=== PATIENT | male | born 1980 | race American Indian/Alaskan Native ===

== ENCOUNTER 2017-10-06 10:57 | Emergency (ER) | payer SELFPAY ==
[2017-10-06 11:06] VITALS: BP 121/68
--- NOTE | 2017-10-06 12:55 | Emergency Department Report ---
Chief Complaint: Medical Clearance Stated Complaint: DIZZINESS Time Seen by Provider: 10/06/17 12:41 - HPI History of Present Illness: 37-year-old [place] male comes in for a blood pressure check. Patient reports that she has been out of his blood pressure medicine for 2 weeks but does not know the name of them. He reports that he is followed at [facility] and reports that his appointment on Thursday. He reports his Kory's medication with his mother which has been hydralazine and a water pill. Patient's blood pressure in triage is 121/68. Patient reports he took one of his mother's hydralazine this morning. She denies any chest pain shortness of breathing. Patient has appointment on Thursday. - ROS Review of Systems: Denies any chest pain Shortness of breathing denies headache - Exam Vital Signs: Vital Signs 10/06/17 11:00 Temperature 98.5 F Pulse Rate 72 Respiratory 16 Rate Blood Pressure 121/68 O2 Sat by Pulse 98 Oximetry Physical Exam: Patient's alert and oriented cardiovascular S1-S2 regular rate and rhythm Respiratory clear to auscultation bilateral Lower leg extremities trace edema MSE screening note: Focused history and physical exam performed. Due to findings the following was ordered: This provider was able to call [facility]. They're able to see him on 517 at 7 PM. Discussed the patient to keep that appointment patient verbalized understanding ED Disposition for MSE Condition: Stable Referrals: PRIMARY CARE, [Primary Care Provider] - 3-5 Days Forms: Work/School Release Form(ED)
== END 2017-10-06 12:58 | disposition left against medical advice (07) ==
LOC: ED 10:57
DX: R42 Dizziness and giddiness (principal)
CPT/HCPCS: 99282

== ENCOUNTER 2018-01-12 11:18 | Inpatient (IN) | payer OTHER ==
[2018-01-12] MEDS ORDERED: NACL 0.9% 1000 ML 1,000 ML IV ONE (14:21)
[2018-01-12] MEDS ORDERED: MORPHINE IV ONE (14:22)
[2018-01-12] MEDS ORDERED: ZOFRAN IV ONE (14:22)
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
[2018-01-12 15:09] LABS: Basophils % (Auto) 0.7 % (0.0-1.8); Eosinophils # (Auto) 0.1 K/mm3 (0.0-0.4); Eosinophils % (Auto) 2.1 % (0.0-4.3); Hematocrit 31.5 % (35.5-45.6); Hemoglobin 10.4 gm/dl (11.8-15.2); Lymphocytes # (Auto) 0.9 K/mm3 (1.2-5.4); Lymphocytes % (Auto) 12.6 % (13.4-35.0); Mean Corpuscular HGB Conc 33 % (32-34); Mean Corpuscular Hemoglobin 30 pg (28-32); Mean Corpuscular Volume 91 fl (84-94); Monocytes # (Auto) 0.7 K/mm3 (0.0-0.8); Monocytes % (Auto) 9.6 % (0.0-7.3); Platelet Count 106 K/mm3 (140-440); Red Blood Count 3.46 M/mm3 (3.65-5.03); Red Cell Distribution Width 14.2 % (13.2-15.2)
[2018-01-12 15:25] LABS: Alanine Aminotransferase 33 units/L (7-56); Albumin 1.5 g/dL (3.9-5)
[2018-01-12 16:18] LABS: BUN/Creatinine Ratio 4; Blood Urea Nitrogen 50 mg/dL (9-20); Calcium 6.4 mg/dL (8.4-10.2); Hemolysis Index 2; Lipase 14 units/L (13-60)
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
[2018-01-12] MEDS ORDERED: TYLENOL PO PRN (18:50)
[2018-01-12] MEDS ORDERED: PROVENTIL IH PRN (18:50)
--- NOTE | 2018-01-12 18:50 | History and Physical Report ---
History of Present Illness Chief complaint: I just feel sick History of present illness: 37 YO Male with Obesity, HTN, Nicotine Dependence, NSAID Use presents to ED for evaluation. Pt states that he has been feeling "sick" for the past 3 weeks. Pt states that he has experienced nausea, multiple episodes of vomiting, as well as chronic pain for which he has been taking Goody powder daily for pain relief. Pt acknowledges leg swelling, undetermined amount of weight gain. Pt denies fever, chills, CP, Palpitations, NVD, Syncope, Trauma, BRBPR, unintentional weight loss, or night sweats. Pt seen and evaluated in ED and found to have evidence of ESRD as well as Acidosis. CT Abdomen/Pelvis revealed an incidental finding of Left Renal Mass. Nephrology consulted in ED, Urology consulted in ED as per ED staff. Past History Past Medical History: hypertension Past Surgical History: No surgical history, Other (reviewed) Social history: single, smoking Family history: hypertension Medications and Allergies Allergies Allergy/AdvReac Type Severity Reaction Status Date / Time No Known Allergies Allergy Unverified 10/06/17 11:06 Review of Systems Constitutional: weight gain, weakness, no weight loss, no fever, no chills, no sweats Ears, nose, mouth and throat: no ear pain, no ear discharge, no tinnitis, no decreased hearing, no nose pain, no nasal congestion Cardiovascular: no chest pain, no orthopnea, no palpitations, no rapid/ irregular heart beat, no edema, no syncope Respiratory: no cough, no cough with sputum, no excessive sputum, no hemoptysis , no shortness of breath Gastrointestinal: nausea, vomiting, no diarrhea, no constipation, no change in bowel habits, no hematemesis Genitourinary Male: no hematuria, no flank pain, no discharge, no urinary frequency, no urinary hesitancy Rectal: no pain, no incontinence, no bleeding Musculoskeletal: no neck pain, no shooting arm pain, no arm numbness/tingling, no low back pain, no shooting leg pain Integumentary: no rash, no pruritis, no redness, no sores, no wounds Neurological: no head injury, no transient paralysis, no paralysis, no weakness , no numbness, no tingling, no seizures Psychiatric: no anxiety, no memory loss, no change in sleep habits, no sleep disturbances, no insomnia, no hypersomnia, no change in appetite, no change in libido Endocrine: no cold intolerance, no heat intolerance, no polyphagia, no excessive thirst, no polydipsia, no polyuria, no nocturia Exam - Constitutional Vitals: Temp Pulse Resp BP Pulse Ox 98.4 F 71 18 148/92 97 01/12/18 18:15 01/12/18 18:15 01/12/18 18:15 01/12/18 18:15 01/12/18 18:15 General appearance: Present: mild distress - EENT Eyes: Present: PERRL ENT: hearing intact, clear oral mucosa - Neck Neck: Present: supple, normal ROM - Respiratory Respiratory effort: normal Respiratory: bilateral: CTA - Cardiovascular Heart Sounds: Present: S1 & S2. Absent: rub, click - Extremities Extremities: pulses symmetrical, No edema Extremity abnormal: edema Peripheral Pulses: within normal limits - Abdominal General gastrointestinal: Present: soft, non-tender, non-distended, normal bowel sounds Male genitourinary: Present: normal - Integumentary Integumentary: Present: clear, warm, dry - Musculoskeletal Musculoskeletal: gait normal, strength equal bilaterally - Psychiatric Psychiatric: appropriate mood/affect, intact judgment & insight - Neurologic Neurologic: CNII-XII intact, moves all extremities Results - Labs CBC & Chem 7: 01/12/18 14:41 01/12/18 14:41 Labs: Abnormal lab results 01/12/18 01/12/18 Range/Units 14:41 14:41 RBC 3.46 L (3.65-5.03) M/mm3 Hgb 10.4 L (11.8-15.2) gm/dl Hct 31.5 L (35.5-45.6) % Plt Count 106 L (140-440) K/mm3 Lymph % (Auto) 12.6 L (13.4-35.0) % [place] % (Auto) 9.6 H (0.0-7.3) % Lymph # 0.9 L (1.2-5.4) K/mm3 Seg Neutrophils % 75.0 H (40.0-70.0) % Carbon Dioxide 17 L (22-30) mmol/L BUN 50 H (9-20) mg/dL Creatinine 13.5 H (0.8-1.5) mg/dL Calcium 6.4 L (8.4-10.2) mg/dL Total Protein 4.3 L (6.3-8.2) g/dL Albumin 1.5 L (3.9-5) g/dL Assessment and Plan - Patient Problems (1) ESRD (end stage renal disease) Current Visit: Yes Status: Acute Plan to address problem: Nephrology consulted in ED, urine ultrasound, rapid HIV, hepatitis panel, complement (2) Acidosis Current Visit: Yes Status: Acute Plan to address problem: IV Bicarbonate, supportive care, repeat BMP (3) Renal mass, left Current Visit: Yes Status: Acute Plan to address problem: Urology consulted in ED. (4) DVT prophylaxis Current Visit: Yes Status: Acute Plan to address problem: SCD to BLE while in bed.
--- NOTE | 2018-01-12 18:55 | XRay Report ---
FINAL REPORT EXAM: XR CHEST ROUTINE 2V HISTORY: EDEMA WITH CONGESTION TECHNIQUE: Frontal and lateral views of the chest Comparison: CT abdomen and pelvis also performed today FINDINGS: There are bilateral pleural effusions as was demonstrated on the CT abdomen and pelvis also performed today. There is prominence of the interstitial markings in both lungs with peribronchial thickening. There are patchy areas of pulmonary consolidation in both lung bases. Atelectasis versus infiltrates. The cardiomediastinal silhouette is normal in appearance. The bony structures are unremarkable. IMPRESSION: 1. Bilateral pleural effusions. 2. Atelectasis versus infiltrates both lung bases. 3. Prominence of the interstitial markings with peribronchial thickening. If further imaging is required, CT chest may be helpful.
[2018-01-12] MEDS ORDERED: SODIUM BICARBONATE 50 MEQ in NACL 0.9% 1000 ML 1,000 ML IV SCH (19:00)
[2018-01-12] MEDS ORDERED: SODIUM BICARBONATE IV ONE (21:15)
[2018-01-12 22:25] LABS: Hepatitis A Antibody IgM Non-Reactive (NonReactive); Hepatitis B Core IgM Non-Reactive (NonReactive); Hepatitis B Surface Antigen Non-Reactive (Negative); Hepatitis C Virus Antibody Non-Reactive (NonReactive)
[2018-01-12] MEDS: SODIUM CHLORIDE FLUSH SYRINGE 10 ML IV SCH (22:58)
[2018-01-13] MEDS: PERCOCET 5/325 PO PRN ×3 (05:52→20:22)
[2018-01-13 08:25] LABS: Creatinine,Urine < 4.2 mg/dL (0.1-20.0)
--- NOTE | 2018-01-13 11:29 | Progress Note ---
Assessment and Plan Assessment and plan: 37 YO Male with Obesity, HTN, Nicotine Dependence, NSAID Use presents to ED for evaluation. Pt states that he has been feeling "sick" for the past 3 weeks. Pt states that he has experienced nausea, multiple episodes of vomiting, as well as chronic pain for which he has been taking Goody powder daily for pain relief. Pt acknowledges leg swelling, undetermined amount of weight gain. Pt denies fever, chills, CP, Palpitations, NVD, Syncope, Trauma, BRBPR, unintentional weight loss, or night sweats. Pt seen and evaluated in ED and found to have evidence of ESRD as well as Acidosis. CT Abdomen/Pelvis revealed an incidental finding of Left Renal Mass. Nephrology consulted in ED, Urology consulted in ED as per ED staff. according to additional information obtained from Mother. Pt has been with diagnosis of HTN for about 1 year and unfortunately non complaint with treatment. He follows at [facility] [place] [facility] when he feels bad and is taken lasix and norvasc for the past year 40mg and 5 mg respectively. He smokes 3 cigarettes per day and has been on goody powder for the last 5 months. He denies knowledge of previous lab results. GALLO with possible underlying CKD COMPLICATED BY NSAID USE PERITONEAL IRRITATION PLEURAL EFFUSION EDEMA SEVERE METABOLIC ACIDOSIS HTN LEFT RENAL MASS ANEMIA OF CHRONIC DISEASE NON COMPLIANCE Plan Continue supportive care Gentle hydration with Bicarb drip Checked labs today still with abnormal renal function and worsening acidosis Nephrology, Urology input noted. Need biopsy once renal work up completed resume BP control Counselling about compliance stressed Check Echocardiogram Obtain records DVT/GI prophy Plan discussed in detail with the patient. History Interval history: Patient seen and examined, reports no knowlegde of renal condition. Denies any chest pain, nausea, vomiting diarrhea Hospitalist Physical - Constitutional Vitals: Temp Pulse Resp BP Pulse Ox 98.6 F 73 20 150/90 100 01/13/18 06:04 01/12/18 23:39 01/13/18 06:04 01/13/18 06:04 01/12/18 23:39 General appearance: Present: no acute distress, well-nourished - EENT Eyes: Present: PERRL, EOM intact ENT: hearing intact - Neck Neck: Present: supple, normal ROM - Respiratory Respiratory effort: normal Respiratory: bilateral: CTA - Cardiovascular Rhythm: regular Heart Sounds: Present: S1 & S2. Absent: systolic murmur - Extremities Extremities: pulses intact Extremity abnormal: edema (+2 bilateral pitting edema) Peripheral Pulses: within normal limits - Abdominal General gastrointestinal: soft, non-tender, non-distended, normal bowel sounds - Integumentary Integumentary: Present: clear, warm - Psychiatric Psychiatric: appropriate mood/affect, memory intact, other (poor insight) - Neurologic Neurologic: CNII-XII intact, moves all extremities - Allied Health Allied health notes reviewed: nursing Results - Labs CBC & Chem 7: 01/12/18 14:41 01/13/18 12:44 Labs: Laboratory Last Values WBC 6.8 K/mm3 (4.5-11.0) 01/12/18 14:41 RBC 3.46 M/mm3 (3.65-5.03) L 01/12/18 14:41 Hgb 10.4 gm/dl (11.8-15.2) L 01/12/18 14:41 Hct 31.5 % (35.5-45.6) L 01/12/18 14:41 MCV 91 fl (84-94) 01/12/18 14:41 MCH 30 pg (28-32) 01/12/18 14:41 MCHC 33 % (32-34) 01/12/18 14:41 RDW 14.2 % (13.2-15.2) 01/12/18 14:41 Plt Count 106 K/mm3 (140-440) L 01/12/18 14:41 Lymph % (Auto) 12.6 % (13.4-35.0) L 01/12/18 14:41 Traverse % (Auto) 9.6 % (0.0-7.3) H 01/12/18 14:41 Eos % (Auto) 2.1 % (0.0-4.3) 01/12/18 14:41 Baso % (Auto) 0.7 % (0.0-1.8) 01/12/18 14:41 Lymph # 0.9 K/mm3 (1.2-5.4) L 01/12/18 14:41 Traverse # 0.7 K/mm3 (0.0-0.8) 01/12/18 14:41 Eos # 0.1 K/mm3 (0.0-0.4) 01/12/18 14:41 Baso # 0.0 K/mm3 (0.0-0.1) 01/12/18 14:41 Seg Neutrophils % 75.0 % (40.0-70.0) H 01/12/18 14:41 Seg Neutrophils # 5.1 K/mm3 (1.8-7.7) 01/12/18 14:41 Sodium 141 mmol/L (137-145) 01/12/18 14:41 Potassium 3.9 mmol/L (3.6-5.0) 01/12/18 14:41 Chloride 107.0 mmol/L (98-107) 01/12/18 14:41 Carbon Dioxide 17 mmol/L (22-30) L 01/12/18 14:41 Anion Gap 21 mmol/L 01/12/18 14:41 BUN 50 mg/dL (9-20) H 01/12/18 14:41 Creatinine 13.5 mg/dL (0.8-1.5) H 01/12/18 14:41 Estimated GFR 5 ml/min 01/12/18 14:41 BUN/Creatinine Ratio 4 % 01/12/18 14:41 Glucose 96 mg/dL (75-100) 01/12/18 14:41 Calcium 6.4 mg/dL (8.4-10.2) L 01/12/18 14:41 Total Bilirubin < 0.20 mg/dL (0.1-1.2) 01/12/18 14:41 AST 33 units/L (5-40) 01/12/18 14:41 ALT 33 units/L (7-56) 01/12/18 14:41 Alkaline Phosphatase 95 units/L (35-129) 01/12/18 14:41 NT-Pro-B Natriuret Pep 1826 pg/mL (0-450) H 01/12/18 18:46 Total Protein 4.3 g/dL (6.3-8.2) L 01/12/18 14:41 Albumin 1.5 g/dL (3.9-5) L 01/12/18 14:41 Albumin/Globulin Ratio 0.5 % 01/12/18 14:41 Lipase 14 units/L (13-60) 01/12/18 14:41 Urine Creatinine < 4.2 mg/dL (0.1-20.0) 01/13/18 06:18 Urine Sodium 10 mmol/L 01/13/18 06:18 Hepatitis A IgM Ab Non-reactive (NonReactive) 01/12/18 21:37 Hep Bs Antigen Non-reactive (Negative) 01/12/18 21:37 Hep B Core IgM Ab Non-reactive (NonReactive) 01/12/18 21:37 Hepatitis C Antibody Non-reactive (NonReactive) 01/12/18 21:37 HIV 1&2 Antibody Rapid Non react (Non React) 01/12/18 21:36 HIV P24 Antigen Non react (Non React) 01/12/18 21:36 - Imaging and Cardiology CT scan - abdomen: image reviewed (left renal mass, pleural effusion, moderate stool)
[2018-01-13] MEDS ORDERED: NORVASC PO SCH (12:00)
[2018-01-13] MEDS ORDERED: NACL 0.9% 1000 ML 1,000 ML IV SCH (12:00)
[2018-01-13] MEDS: SODIUM CHLORIDE FLUSH SYRINGE 10 ML IV SCH ×2 (12:23→22:00)
--- NOTE | 2018-01-13 12:44 | Progress Note ---
Assessment and Plan dictated renal mass needs tx after renal failure addressed Subjective Date of service: 01/13/18 Principal diagnosis: renal mass Objective - Constitutional Vitals: Vital Signs - 12hr 01/13/18 01/13/18 06:04 12:20 Temperature 98.6 F Respiratory 20 Rate Blood Pressure 150/90 142/86 General appearance: Present: no acute distress Extremities: no ischemia - Gastrointestinal General gastrointestinal: Present: soft, non-tender Rectal Exam: other (atrophic ) - Labs CBC & Chem 7: 01/12/18 14:41 01/12/18 14:41 Labs: Abnormal lab results 01/12/18 01/12/18 01/12/18 Range/Units 14:41 14:41 18:46 RBC 3.46 L (3.65-5.03) M/mm3 Hgb 10.4 L (11.8-15.2) gm/dl Hct 31.5 L (35.5-45.6) % Plt Count 106 L (140-440) K/mm3 Lymph % (Auto) 12.6 L (13.4-35.0) % Baker % (Auto) 9.6 H (0.0-7.3) % Lymph # 0.9 L (1.2-5.4) K/mm3 Seg Neutrophils % 75.0 H (40.0-70.0) % Carbon Dioxide 17 L (22-30) mmol/L BUN 50 H (9-20) mg/dL Creatinine 13.5 H (0.8-1.5) mg/dL Calcium 6.4 L (8.4-10.2) mg/dL NT-Pro-B Natriuret Pep 1826 H (0-450) pg/mL Total Protein 4.3 L (6.3-8.2) g/dL Albumin 1.5 L (3.9-5) g/dL
[2018-01-13 13:35] LABS: Calcium 6.1 mg/dL (8.4-10.2)
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
[2018-01-13] MEDS ORDERED: SODIUM BICARBONATE IV ONE ×2 (15:30→16:00)
[2018-01-13] MEDS ORDERED: NACL 0.9% 1000 ML 1,000 ML with SODIUM BICARBONATE 50 MEQ IV SCH (15:30)
[2018-01-13] MEDS ORDERED: CALCIUM GLUCONATE 1,000 MG in NACL 0.9% 100 ML IV ONE (17:00)
[2018-01-13] MEDS ORDERED: SODIUM BICARBONATE 150 MEQ in D5W 1,000 ML IV SCH (17:00)
--- NOTE | 2018-01-13 18:21 | Ultrasound Report ---
FINAL REPORT EXAM: US RENAL BILAT HISTORY: renal failure TECHNIQUE: Grayscale and color-flow imaging of the kidneys and bladder was performed. Comparison: CT abdomen and pelvis dated January 12, 2018 FINDINGS: Right kidney: Measures 10.2 centimeters x 3.9 centimeters x 4.2 centimeters. There is evidence of cortical thinning with cortical thickness measuring 9.5 millimeters. There is increased echogenicity of the renal cortex suggestive of medical renal disease. There is no demonstration of hydronephrosis, renal calculi or renal mass. Left kidney: Visualization of detail of the left kidney is somewhat limited by artifact. The left kidney measures 13.4 centimeters x 5.7 centimeters x 7.5 centimeters. There is mild left hydronephrosis. There is no demonstration of renal calculi. There is increased echogenicity of the left renal cortex suggestive of medical renal disease. There is an approximately 3.9 centimeter x 3 centimeter by 3 centimeter hypoechoic exophytic mass arising from the lower pole corresponding to the mass demonstrated on the recent CT. There appears to be through transmission suggestive that this is a cyst. Urinary bladder: Mildly distended. There appears to be increased thickness of the bladder wall. IMPRESSION: 1. Right renal atrophy. 2. Mild left hydronephrosis 3. Evidence of bilateral medical renal disease. 4. Exophytic hypoechoic mass arising from the lower pole left kidney that appears to be a cyst. Comparison with previous imaging studies would be helpful. 5. Increased thickness of the bladder wall. This may be due to under distention of the bladder.
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
[2018-01-14 05:36] LABS: Basophils % (Auto) 0.6 % (0.0-1.8); Eosinophils # (Auto) 0.2 K/mm3 (0.0-0.4); Eosinophils % (Auto) 3.1 % (0.0-4.3); Hematocrit 26.3 % (35.5-45.6); Hemoglobin 8.8 gm/dl (11.8-15.2); Lymphocytes # (Auto) 1.1 K/mm3 (1.2-5.4); Lymphocytes % (Auto) 17.7 % (13.4-35.0); Mean Corpuscular HGB Conc 34 % (32-34); Mean Corpuscular Hemoglobin 30 pg (28-32); Mean Corpuscular Volume 89 fl (84-94); Monocytes # (Auto) 0.5 K/mm3 (0.0-0.8); Monocytes % (Auto) 8.8 % (0.0-7.3); Red Blood Count 2.97 M/mm3 (3.65-5.03); Red Cell Distribution Width 14.2 % (13.2-15.2)
[2018-01-14 05:38] LABS: Platelet Count 88 K/mm3 (140-440)
[2018-01-14 05:55] LABS: Calcium 6.3 mg/dL (8.4-10.2)
[2018-01-14] MEDS: PERCOCET 5/325 PO PRN ×4 (06:08→23:22)
--- NOTE | 2018-01-14 09:35 | Progress Note ---
Assessment and Plan Acute Renal Failure possibly Prerenal secondary to Volume Depletion secondary to N/V and poor appetite for 3 weeks in the setting of Diuretic use with Lasix possibly on Chronic Kidney Disease secondary to NASID use with Goody's Powder and Hypertension: -no improvement in kidney function, very likely ESRD - secondary GN work up and vasculitis is pending, so far negative for HIV, HCV and HBV - urine studies are pending - reanl US showed mild Left hydronephrosis, pack ordered, urology on board -Avoid Nephrotoxic agents-No NASID's -No diuretics for now or REBECA or ARB due to advanced vale lfailure -Obtain daily weights -Monitor I/O's -Will monitor renal function closely -If no improvement in renal function in the next 24-48 hours will need dialysis initiation Abdominal Pain: Nausea/Vomiting: -On Zofran prn for nausea -On Oxycodone prn for pain -As per primary team Edema: -May need HD if no improvement in renal function Metabolic Acidosis secondary to renal failure: -D5W with 150 meq of Sodium Bicarbonate@ 75 ml/hr Renal Mass, left: -CT scan of Abdomen revealed-Mild Left hydronephrosis without definite evidence of an obstructing stone. Left kidney larger than the right. There is a 3.5 cm exophytic soft tissue mass on lower pole of left kidney. -Urology consulted Anemia: -Obtain iron studies -Monitor H/H -May need Epogen Hypertension: -On Nifedipine now -Monitor and adjust regimen as needed Subjective Date of service: 01/14/18 Principal diagnosis: renal mass Interval history: feels weak but denies acute issues Objective - Vital Signs Vital signs: Vital Signs - 12hr 01/13/18 01/13/18 01/14/18 22:00 22:42 05:52 Temperature 98.4 F 98.4 F Pulse Rate 74 78 Pulse Rate [ 74 Left Radial] Respiratory 74 H 16 18 Rate Blood Pressure 144/75 118/70 O2 Sat by Pulse 99 99 97 Oximetry - General Appearance General appearance: well-developed, well-nourished, appears stated age EENT: ATNC, PERRL, mucous membranes moist Neck: no JVD, no carotid bruit Respiratory: Present: Clear to Ascultation, Decreased Breath Sounds. Absent: Rales, Ronchi Cardiology: regular, S1S2 Gastrointestinal: normoactive bowel sounds, no tenderness, no distended Integumentary: no rash, warm and dry Neurologic: no focal deficit, no asterixis, alert and oriented x3 Musculoskeletal: other (trace pitting edema in BLE) Psychiatric: mood/affect appropriate, cooperative - Lab 01/14/18 04:51 01/14/18 04:51 Most recent lab results Calcium 6.3 mg/dL (8.4-10.2) L 01/14/18 04:51 Phosphorus 8.20 mg/dL (2.5-4.5) H 01/14/18 04:51 Urine Creatinine < 4.2 mg/dL (0.1-20.0) 01/13/18 06:18 Urine Sodium 10 mmol/L 01/13/18 06:18 Urine Total Protein 79 mg/dL (5-11.8) H 01/13/18 Unknown
[2018-01-14] MEDS: PROCARDIA XL PO SCH (12:31)
[2018-01-14] MEDS: SODIUM CHLORIDE FLUSH SYRINGE 10 ML IV SCH ×2 (12:32→21:22)
--- NOTE | 2018-01-14 14:41 | Progress Note ---
Assessment and Plan Assessment and plan: 37 YO Male with Obesity, HTN, Nicotine Dependence, NSAID Use presents to ED for evaluation. Pt states that he has been feeling "sick" for the past 3 weeks. Pt states that he has experienced nausea, multiple episodes of vomiting, as well as chronic pain for which he has been taking Goody powder daily for pain relief. Pt acknowledges leg swelling, undetermined amount of weight gain. Pt denies fever, chills, CP, Palpitations, NVD, Syncope, Trauma, BRBPR, unintentional weight loss, or night sweats. Pt seen and evaluated in ED and found to have evidence of ESRD as well as Acidosis. CT Abdomen/Pelvis revealed an incidental finding of Left Renal Mass. Nephrology consulted in ED, Urology consulted in ED as per ED staff. according to additional information obtained from Mother. Pt has been with diagnosis of HTN for about 1 year and unfortunately non complaint with treatment. He follows at [facility] when he feels bad and is taken lasix and norvasc for the past year 40mg and 5 mg respectively. He smokes 3 cigarettes per day and has been on goody powder for the last 5 months. He denies knowledge of previous lab results. GALLO with possible underlying CKD COMPLICATED BY NSAID USE PERITONEAL IRRITATION PLEURAL EFFUSION EDEMA SEVERE METABOLIC ACIDOSIS Thrombocytopenia Hypokalemia LEFT HYDRONEPHROSIS HTN LEFT RENAL MASS ANEMIA OF CHRONIC DISEASE NON COMPLIANCE Plan Continue supportive care Gentle hydration with Bicarb drip Arora ordered. May need dialysis fi no improvement,. discussed Replace electrolyes Nephrology, Urology input noted. Need biopsy once renal work up completed resume BP control Counselling about compliance stressed Check Echocardiogram Obtain records DVT/GI prophy Plan discussed in detail with the patient. History Interval history: Patient seen and examined, no new compliants, Denies any chest pain, nausea, vomiting diarrhea Hospitalist Physical - Physical exam Narrative exam: General appearance: Present: no acute distress, well-nourished - EENT Eyes: Present: PERRL, EOM intact ENT: hearing intact - Neck Neck: Present: supple, normal ROM - Respiratory Respiratory effort: normal Respiratory: bilateral: CTA - Cardiovascular Rhythm: regular Heart Sounds: Present: S1 & S2. Absent: systolic murmur - Extremities Extremities: pulses intact Extremity abnormal: edema (+2 bilateral pitting edema) Peripheral Pulses: within normal limits - Abdominal General gastrointestinal: soft, non-tender, non-distended, normal bowel sounds - Integumentary Integumentary: Present: clear, warm - Psychiatric Psychiatric: appropriate mood/affect, memory intact, other (poor insight) - Neurologic Neurologic: CNII-XII intact, moves all extremities - Allied Health Allied health notes reviewed: nursing - Constitutional Vitals: Temp Pulse Resp BP Pulse Ox 98.0 F 62 18 138/74 58 L 01/14/18 11:30 01/14/18 11:30 01/14/18 11:30 01/14/18 11:30 01/14/18 11:30 General appearance: Present: no acute distress, well-nourished Results - Labs CBC & Chem 7: 01/14/18 04:51 01/14/18 04:51 Labs: Laboratory Last Values WBC 6.0 K/mm3 (4.5-11.0) 01/14/18 04:51 RBC 2.97 M/mm3 (3.65-5.03) L 01/14/18 04:51 Hgb 8.8 gm/dl (11.8-15.2) L 01/14/18 04:51 Hct 26.3 % (35.5-45.6) L 01/14/18 04:51 MCV 89 fl (84-94) 01/14/18 04:51 MCH 30 pg (28-32) 01/14/18 04:51 MCHC 34 % (32-34) 01/14/18 04:51 RDW 14.2 % (13.2-15.2) 01/14/18 04:51 Plt Count 88 K/mm3 (140-440) L 01/14/18 04:51 Lymph % (Auto) 17.7 % (13.4-35.0) 01/14/18 04:51 [place] % (Auto) 8.8 % (0.0-7.3) H 01/14/18 04:51 Eos % (Auto) 3.1 % (0.0-4.3) 01/14/18 04:51 Baso % (Auto) 0.6 % (0.0-1.8) 01/14/18 04:51 Lymph # 1.1 K/mm3 (1.2-5.4) L 01/14/18 04:51 [place] # 0.5 K/mm3 (0.0-0.8) 01/14/18 04:51 Eos # 0.2 K/mm3 (0.0-0.4) 01/14/18 04:51 Baso # 0.0 K/mm3 (0.0-0.1) 01/14/18 04:51 Seg Neutrophils % 69.8 % (40.0-70.0) 01/14/18 04:51 Seg Neutrophils # 4.2 K/mm3 (1.8-7.7) 01/14/18 04:51 Sodium 137 mmol/L (137-145) 01/14/18 04:51 Potassium 3.3 mmol/L (3.6-5.0) L 01/14/18 04:51 Chloride 106.2 mmol/L (98-107) 01/14/18 04:51 Carbon Dioxide 17 mmol/L (22-30) L 01/14/18 04:51 Anion Gap 17 mmol/L 01/14/18 04:51 BUN 51 mg/dL (9-20) H 01/14/18 04:51 Creatinine 13.0 mg/dL (0.8-1.5) H 01/14/18 04:51 Estimated GFR 5 ml/min 01/14/18 04:51 BUN/Creatinine Ratio 4 % 01/14/18 04:51 Glucose 89 mg/dL (75-100) 01/14/18 04:51 Calcium 6.3 mg/dL (8.4-10.2) L 01/14/18 04:51 Phosphorus 8.20 mg/dL (2.5-4.5) H 01/14/18 04:51 Iron 32 ug/dL (49-181) L 01/14/18 04:51 TIBC 61 mcg/dL (250-450) L 01/14/18 04:51 Ferritin 1231.0 ng/mL (13.0-400.0) H 01/14/18 04:51 Total Bilirubin < 0.20 mg/dL (0.1-1.2) 01/12/18 14:41 AST 33 units/L (5-40) 01/12/18 14:41 ALT 33 units/L (7-56) 01/12/18 14:41 Alkaline Phosphatase 95 units/L (35-129) 01/12/18 14:41 NT-Pro-B Natriuret Pep 1826 pg/mL (0-450) H 01/12/18 18:46 Total Protein 4.3 g/dL (6.3-8.2) L 01/12/18 14:41 Albumin 1.5 g/dL (3.9-5) L 01/12/18 14:41 Albumin/Globulin Ratio 0.5 % 01/12/18 14:41 Lipase 14 units/L (13-60) 01/12/18 14:41 Urine Creatinine < 4.2 mg/dL (0.1-20.0) 01/13/18 06:18 Urine Sodium 10 mmol/L 01/13/18 06:18 Urine Total Protein 79 mg/dL (5-11.8) H 01/13/18 Unknown Hepatitis A IgM Ab Non-reactive (NonReactive) 01/12/18 21:37 Hep Bs Antigen Non-reactive (Negative) 01/12/18 21:37 Hep B Core IgM Ab Non-reactive (NonReactive) 01/12/18 21:37 Hepatitis C Antibody Non-reactive (NonReactive) 01/12/18 21:37 HIV 1&2 Antibody Rapid Non react (Non React) 01/12/18 21:36 HIV P24 Antigen Non react (Non React) 01/12/18 21:36
[2018-01-14 15:15] LABS: Creatinine,Urine 97.6 mg/dL (0.1-20.0)
[2018-01-14 15:31] LABS: Protein/Creatinine Ratio,Urine 0.66
[2018-01-14] MEDS: ZOFRAN IV PRN ×2 (16:22→23:23)
[2018-01-15 11:21] LABS: Hematocrit 26.7 % (35.5-45.6); Hemoglobin 8.8 gm/dl (11.8-15.2); Mean Corpuscular HGB Conc 33 % (32-34); Mean Corpuscular Hemoglobin 30 pg (28-32); Mean Corpuscular Volume 89 fl (84-94); Mean Platelet Volume 9.1 fl (6-12); Platelet Count 87 K/mm3 (140-440); Red Blood Count 2.99 M/mm3 (3.65-5.03); Red Cell Distribution Width 14.2 % (13.2-15.2)
[2018-01-15 11:22] LABS: Basophils # (Auto) 0.2 K/mm3 (0.0-0.1); Basophils % (Auto) 2.7 % (0.0-1.8); Eosinophils # (Auto) 0.5 K/mm3 (0.0-0.4); Eosinophils % (Auto) 5.7 % (0.0-4.3); Lymphocytes # (Auto) 0.6 K/mm3 (1.2-5.4); Lymphocytes % (Auto) 7.8 % (13.4-35.0); Monocytes # (Auto) 0.6 K/mm3 (0.0-0.8); Monocytes % (Auto) 7.1 % (0.0-7.3)
[2018-01-15 11:40] LABS: Alanine Aminotransferase 26 units/L (7-56); Albumin 1.1 g/dL (3.9-5); BUN/Creatinine Ratio 4; Blood Urea Nitrogen 50 mg/dL (9-20); Hemolysis Index 56
[2018-01-15 11:44] LABS: Calcium 5.7 mg/dL (8.4-10.2)
[2018-01-15] MEDS: PROCARDIA XL PO SCH (11:59)
[2018-01-15] MEDS: PERCOCET 5/325 PO PRN ×2 (11:59→20:37)
[2018-01-15] MEDS: ZOFRAN IV PRN ×2 (12:06→20:41)
--- NOTE | 2018-01-15 15:27 | Progress Note ---
Assessment and Plan Acute Renal Failure possibly Prerenal secondary to Volume Depletion secondary to N/V and poor appetite for 3 weeks in the setting of Diuretic use with Lasix possibly on Chronic Kidney Disease secondary to NASID use with Goody's Powder and Hypertension: - cont to have severe renal failure, no baseline available, noted to have very low complement level, hepatitis panel is negative, will check rheumatoid factor and ESR, will also check LDH, uric and blood smear due to low plt, will also consult hematology to r/o TTP/HUS - discussed in length with Dr Gonzalez, will order biopsy of the left kidney to r/ o malignancy and secondary GN - secondary GN work up and vasculitis is pending, so far negative for HIV, HCV and HBV. Pending: MARY CARMEN, ANCA, anti GBM, SPEP. - reanl US showed mild Left hydronephrosis, urology on board -Avoid Nephrotoxic agents-No NASID's -Obtain daily weights -Monitor I/O's -Will monitor renal function closely, no indication fro MISSILE INSPECTOR PREFLIGHT, but likely to be needed in the near future Abdominal Pain: Nausea/Vomiting: -On Zofran prn for nausea -On Oxycodone prn for pain -As per primary team Edema: -May need HD if no improvement in renal function Metabolic Acidosis secondary to renal failure: -will d/c bicarb gtt Renal Mass, left: -CT scan of Abdomen revealed-Mild Left hydronephrosis without definite evidence of an obstructing stone. Left kidney larger than the right. There is a 3.5 cm exophytic soft tissue mass on lower pole of left kidney. - kidney biopsy as above -Urology consulted Anemia: -Obtain iron studies -Monitor H/H -May need Epogen Hypertension: -will increase nifedipine to 60 mg -Monitor and adjust regimen as needed Subjective Date of service: 01/15/18 Principal diagnosis: renal mass Interval history: denies acute issues, comfortable Objective - Vital Signs Vital signs: Vital Signs - 12hr 01/15/18 01/15/18 05:47 12:16 Temperature 98.8 F 98.3 F Pulse Rate 73 Respiratory 20 20 Rate Blood Pressure 150/96 133/76 O2 Sat by Pulse 100 Oximetry - General Appearance General appearance: well-developed, well-nourished, appears stated age EENT: ATNC, PERRL, mucous membranes moist Neck: no JVD, no carotid bruit Respiratory: Present: Clear to Ascultation. Absent: Rales, Ronchi Cardiology: regular, S1S2 Gastrointestinal: normoactive bowel sounds, no distended, no masses Integumentary: no rash, warm and dry Neurologic: no focal deficit, no asterixis, alert and oriented x3 Musculoskeletal: other (trace pitting edema in BLE) Psychiatric: mood/affect appropriate, cooperative - Lab 01/15/18 10:25 01/15/18 10:25 Most recent lab results Calcium 5.7 mg/dL (8.4-10.2) L* 01/15/18 10:25 Phosphorus 8.20 mg/dL (2.5-4.5) H 01/14/18 04:51 Urine Creatinine 97.6 mg/dL (0.1-20.0) H 01/14/18 Unknown Urine Sodium 42 mmol/L 01/14/18 Unknown Urine Total Protein 64 mg/dL (5-11.8) H 01/14/18 Unknown
[2018-01-15 16:17] LABS: INR 1.03 (0.87-1.13)
[2018-01-15 16:18] LABS: Partial Thromboplastin Time 36.5 Sec. (24.2-36.6)
[2018-01-15 16:24] LABS: Erythrocyte Sedimentation Rate > 140.0 mm/Hr (0-20)
--- NOTE | 2018-01-15 16:36 | Progress Note ---
Assessment and Plan Assessment and plan: 37 YO Male with Obesity, HTN, Nicotine Dependence, NSAID Use presents to ED for evaluation. Pt states that he has been feeling "sick" for the past 3 weeks. Pt states that he has experienced nausea, multiple episodes of vomiting, as well as chronic pain for which he has been taking Goody powder daily for pain relief. Pt acknowledges leg swelling, undetermined amount of weight gain. Pt denies fever, chills, CP, Palpitations, NVD, Syncope, Trauma, BRBPR, unintentional weight loss, or night sweats. Pt seen and evaluated in ED and found to have evidence of ESRD as well as Acidosis. CT Abdomen/Pelvis revealed an incidental finding of Left Renal Mass. Nephrology consulted in ED, Urology consulted in ED as per ED staff. according to additional information obtained from Mother. Pt has been with diagnosis of HTN for about 1 year and unfortunately non complaint with treatment. He follows at [facility] when he feels bad and is taken lasix and norvasc for the past year 40mg and 5 mg respectively. He smokes 3 cigarettes per day and has been on goody powder for the last 5 months. He denies knowledge of previous lab results. GALLO with possible underlying CKD COMPLICATED BY NSAID USE PERITONEAL IRRITATION PLEURAL EFFUSION EDEMA SEVERE METABOLIC ACIDOSIS Hypocomplementemia Thrombocytopenia Hypokalemia LEFT HYDRONEPHROSIS Right kidney atrophy HTN LEFT RENAL MASS ANEMIA OF CHRONIC DISEASE NON COMPLIANCE Plan Continue supportive care Gentle hydration with Bicarb drip Arora ordered. May need dialysis iF no improvement, Replace electrolytes Nephrology, Urology input noted. Need biopsy once renal work up completed resume BP control Counselling about compliance stressed Discussed with artisan plasterer- Left kidney mass and kidney biopsy planned for Thursday Still awaiting records DVT/GI prophy Plan discussed in detail with the patient. Hospitalist Physical - Constitutional Vitals: Temp Pulse Resp BP Pulse Ox 98.3 F 73 20 133/76 100 01/15/18 12:16 01/15/18 05:47 01/15/18 12:16 01/15/18 12:16 01/15/18 05:47 General appearance: Present: no acute distress, well-nourished Results - Labs CBC & Chem 7: 01/15/18 10:25 01/15/18 10:25 Labs: Laboratory Last Values WBC 8.1 K/mm3 (4.5-11.0) 01/15/18 10:25 RBC 2.99 M/mm3 (3.65-5.03) L 01/15/18 10:25 Hgb 8.8 gm/dl (11.8-15.2) L 01/15/18 10:25 Hct 26.7 % (35.5-45.6) L 01/15/18 10:25 MCV 89 fl (84-94) 01/15/18 10:25 MCH 30 pg (28-32) 01/15/18 10:25 MCHC 33 % (32-34) 01/15/18 10:25 RDW 14.2 % (13.2-15.2) 01/15/18 10:25 Plt Count 87 K/mm3 (140-440) L 01/15/18 10:25 Lymph % (Auto) 7.8 % (13.4-35.0) L 01/15/18 10:25 [place] % (Auto) 7.1 % (0.0-7.3) 01/15/18 10:25 Eos % (Auto) 5.7 % (0.0-4.3) H 01/15/18 10:25 Baso % (Auto) 2.7 % (0.0-1.8) H 01/15/18 10:25 Lymph # 0.6 K/mm3 (1.2-5.4) L 01/15/18 10:25 [place] # 0.6 K/mm3 (0.0-0.8) 01/15/18 10:25 Eos # 0.5 K/mm3 (0.0-0.4) H 01/15/18 10:25 Baso # 0.2 K/mm3 (0.0-0.1) H 01/15/18 10:25 Seg Neutrophils % 76.7 % (40.0-70.0) H 01/15/18 10:25 Seg Neutrophils # 6.2 K/mm3 (1.8-7.7) 01/15/18 10:25 ESR > 140.0 mm/Hr (0-20) 01/15/18 15:17 PT 14.0 Sec. (12.2-14.9) 01/15/18 15:17 INR 1.03 (0.87-1.13) 01/15/18 15:17 APTT 36.5 Sec. (24.2-36.6) 01/15/18 15:17 Sodium 135 mmol/L (137-145) L 01/15/18 10:25 Potassium 3.6 mmol/L (3.6-5.0) 01/15/18 10:25 Chloride 104.8 mmol/L (98-107) 01/15/18 10:25 Carbon Dioxide 16 mmol/L (22-30) L 01/15/18 10:25 Anion Gap 18 mmol/L 01/15/18 10:25 BUN 50 mg/dL (9-20) H 01/15/18 10:25 Creatinine 12.5 mg/dL (0.8-1.5) H 01/15/18 10:25 Estimated GFR 5 ml/min 01/15/18 10:25 BUN/Creatinine Ratio 4 % 01/15/18 10:25 Glucose 79 mg/dL (75-100) 01/15/18 10:25 Calcium 5.7 mg/dL (8.4-10.2) L* 01/15/18 10:25 Phosphorus 8.20 mg/dL (2.5-4.5) H 01/14/18 04:51 Iron 32 ug/dL (49-181) L 01/14/18 04:51 TIBC 61 mcg/dL (250-450) L 01/14/18 04:51 Ferritin 1231.0 ng/mL (13.0-400.0) H 01/14/18 04:51 Total Bilirubin < 0.20 mg/dL (0.1-1.2) 01/15/18 10:25 AST 32 units/L (5-40) 01/15/18 10:25 ALT 26 units/L (7-56) 01/15/18 10:25 Alkaline Phosphatase 76 units/L (35-129) 01/15/18 10:25 NT-Pro-B Natriuret Pep 1826 pg/mL (0-450) H 01/12/18 18:46 Total Protein 3.6 g/dL (6.3-8.2) L 01/15/18 10:25 Albumin 1.1 g/dL (3.9-5) L 01/15/18 10:25 Albumin/Globulin Ratio 0.4 % 01/15/18 10:25 Lipase 14 units/L (13-60) 01/12/18 14:41 Urine Creatinine 97.6 mg/dL (0.1-20.0) H 01/14/18 Unknown Protein/Creatinin Ratio 0.66 01/14/18 Unknown Urine Sodium 42 mmol/L 01/14/18 Unknown Urine Total Protein 64 mg/dL (5-11.8) H 01/14/18 Unknown Complement C3 28 mg/dL (82-185) L 01/12/18 21:36 Complement C4 6 mg/dL (15-53) L 01/12/18 21:27 Tot Complement (CH50) <10 U/mL (31-60) L 01/12/18 21:27 Hepatitis A IgM Ab Non-reactive (NonReactive) 01/12/18 21:37 Hep Bs Antigen Non-reactive (Negative) 01/12/18 21:37 Hep B Core IgM Ab Non-reactive (NonReactive) 01/12/18 21:37 Hepatitis C Antibody Non-reactive (NonReactive) 01/12/18 21:37 HIV 1&2 Antibody Rapid Non react (Non React) 01/12/18 21:36 HIV P24 Antigen Non react (Non React) 01/12/18 21:36
[2018-01-15 16:41] LABS: Smear for Schistocytes None Seen
--- NOTE | 2018-01-15 17:10 | Progress Note ---
Subjective Date of service: 01/15/18 Principal diagnosis: renal mass Interval history: 37 YO Male with Obesity, HTN, Nicotine Dependence, NSAID Use presents to ED for evaluation. Pt states that he has been feeling "sick" for the past 3 weeks. Pt states that he has experienced nausea, multiple episodes of vomiting, as well as chronic pain for which he has been taking Goody powder daily for pain relief. Pt acknowledges leg swelling, undetermined amount of weight gain. Pt denies fever, chills, CP, Palpitations, NVD, Syncope, Trauma, BRBPR, unintentional weight loss, or night sweats. Pt seen and evaluated in ED and found to have evidence of ESRD as well as Acidosis. CT Abdomen/Pelvis revealed an incidental finding of Left Renal Mass. Nephrology consulted in ED, Urology consulted in ED as per ED staff. according to additional information obtained from Mother. Pt has been with diagnosis of HTN for about 1 year and unfortunately non complaint with treatment. He follows at [facility] when he feels bad and is taken lasix and norvasc for the past year 40mg and 5 mg respectively. He smokes 3 cigarettes per day and has been on goody powder for the last 5 months. He denies knowledge of previous lab results. CTAP - mild left hydro, 3.5cm left renal mass A/P mild left hydro, 3.5cm left renal mass recommend bx left renal mass to determine management discussed with Dr. Barclay Objective - Constitutional Vitals: Vital Signs - 12hr 01/15/18 01/15/18 05:47 12:16 Temperature 98.8 F 98.3 F Pulse Rate 73 Respiratory 20 20 Rate Blood Pressure 150/96 133/76 O2 Sat by Pulse 100 Oximetry - Labs CBC & Chem 7: 01/15/18 10:25 01/15/18 10:25 Labs: Abnormal lab results 01/12/18 01/12/18 01/12/18 Range/Units 21:27 21:27 21:36 RBC (3.65-5.03) M/mm3 Hgb (11.8-15.2) gm/dl Hct (35.5-45.6) % Plt Count (140-440) K/mm3 Lymph % (Auto) (13.4-35.0) % Eos % (Auto) (0.0-4.3) % Baso % (Auto) (0.0-1.8) % Lymph # (1.2-5.4) K/mm3 Eos # (0.0-0.4) K/mm3 Baso # (0.0-0.1) K/mm3 Seg Neutrophils % (40.0-70.0) % Sodium (137-145) mmol/L Carbon Dioxide (22-30) mmol/L BUN (9-20) mg/dL Creatinine (0.8-1.5) mg/dL Calcium (8.4-10.2) mg/dL Total Protein (6.3-8.2) g/dL Albumin (3.9-5) g/dL Complement C3 28 L (82-185) mg/dL Complement C4 6 L (15-53) mg/dL Tot Complement (CH50) <10 L (31-60) U/mL 01/15/18 01/15/18 Range/Units 10:25 10:25 RBC 2.99 L (3.65-5.03) M/mm3 Hgb 8.8 L (11.8-15.2) gm/dl Hct 26.7 L (35.5-45.6) % Plt Count 87 L (140-440) K/mm3 Lymph % (Auto) 7.8 L (13.4-35.0) % Eos % (Auto) 5.7 H (0.0-4.3) % Baso % (Auto) 2.7 H (0.0-1.8) % Lymph # 0.6 L (1.2-5.4) K/mm3 Eos # 0.5 H (0.0-0.4) K/mm3 Baso # 0.2 H (0.0-0.1) K/mm3 Seg Neutrophils % 76.7 H (40.0-70.0) % Sodium 135 L (137-145) mmol/L Carbon Dioxide 16 L (22-30) mmol/L BUN 50 H (9-20) mg/dL Creatinine 12.5 H (0.8-1.5) mg/dL Calcium 5.7 L* (8.4-10.2) mg/dL Total Protein 3.6 L (6.3-8.2) g/dL Albumin 1.1 L (3.9-5) g/dL Complement C3 (82-185) mg/dL Complement C4 (15-53) mg/dL Tot Complement (CH50) (31-60) U/mL
[2018-01-15] MEDS: SODIUM CHLORIDE FLUSH SYRINGE 10 ML IV SCH ×2 (18:32→22:35)
[2018-01-15 19:42] LABS: Uric Acid 8.8 mg/dL (3.5-7.6)
[2018-01-16 00:20] LABS: Bilirubin,Urine NEG (Negative); Blood,Urine MOD (Negative); Color,Urine Yellow (Yellow); Mucus,Urine FEW /HPF; Urobilinogen,Urine < 2.0 mg/dL (<2.0)
[2018-01-16 00:24] LABS: Protein,Urine >500 mg/dL (Negative)
[2018-01-16 07:44] LABS: Calcium 5.8 mg/dL (8.4-10.2)
[2018-01-16 08:50] LABS: Hematocrit 26.2 % (35.5-45.6); Hemoglobin 8.7 gm/dl (11.8-15.2); Mean Corpuscular HGB Conc 33 % (32-34); Mean Corpuscular Hemoglobin 30 pg (28-32); Mean Corpuscular Volume 89 fl (84-94); Red Blood Count 2.95 M/mm3 (3.65-5.03)
[2018-01-16] MEDS ORDERED: K-DUR PO NR (08:50)
[2018-01-16 09:01] LABS: Platelet Count 79 K/mm3 (140-440)
[2018-01-16] MEDS ORDERED: PROCRIT IV PRN (09:58)
--- NOTE | 2018-01-16 09:59 | Progress Note ---
Assessment and Plan Acute Renal Failure possibly Prerenal secondary to Volume Depletion secondary to N/V and poor appetite for 3 weeks in the setting of Diuretic use with Lasix possibly on Chronic Kidney Disease secondary to NASID use with Goody's Powder and Hypertension: - cont to have severe renal failure, no baseline available, noted to have very low complement level, hepatitis panel is negative, noted to have very high ESR, vasculitis work up is pending - LDH is elevated but blood smear is negative for hemolysis, plt countcont to go down, hematology consult is pending - discussed in length with Dr Gonzalez, will order biopsy of the left kidney to r/ o malignancy and secondary GN, orders placed, most likely to be done Thursday - secondary GN work up and vasculitis ordered so far negative for HIV, HCV and HBV. Pending: MARY CARMEN, ANCA, anti GBM, SPEP. - vascular surgery consult requested for permcath placement on Thursday - will start calcium acetate for hyperphosphatemia and hypocalcemia -Avoid Nephrotoxic agents-No NASID's Abdominal Pain: Nausea/Vomiting: -As per primary team Edema: -May need HD if no improvement in renal function Metabolic Acidosis secondary to renal failure: -of bicarb gtt Renal Mass, left: -CT scan of Abdomen revealed-Mild Left hydronephrosis without definite evidence of an obstructing stone. Left kidney larger than the right. There is a 3.5 cm exophytic soft tissue mass on lower pole of left kidney. - kidney biopsy as above -Urology consulted Anemia: -epogen 20,000 today Hypertension: - nifedipine to 60 mg -Monitor and adjust regimen as needed Subjective Date of service: 01/16/18 Principal diagnosis: renal mass Interval history: denies acute issues Objective - Vital Signs Vital signs: Vital Signs - 12hr 01/16/18 01/16/18 01/16/18 00:22 05:44 05:49 Temperature 98.0 F 99.0 F 99.0 F Pulse Rate 74 76 Respiratory 24 18 18 Rate Blood Pressure 128/70 119/64 O2 Sat by Pulse 97 93 Oximetry - General Appearance General appearance: well-developed, well-nourished, appears stated age EENT: ATNC, PERRL Neck: no JVD, no carotid bruit Respiratory: Present: Rales, Ronchi. Absent: Clear to Ascultation Cardiology: regular, S1S2 Gastrointestinal: normoactive bowel sounds, no tenderness, no distended Integumentary: no rash, warm and dry Neurologic: no focal deficit, no asterixis, alert and oriented x3 Musculoskeletal: other (trace pitting edema in BLE) Psychiatric: mood/affect appropriate, cooperative - Lab 01/16/18 08:03 01/16/18 05:27 Most recent lab results Calcium 5.8 mg/dL (8.4-10.2) L* 01/16/18 05:27 Phosphorus 7.70 mg/dL (2.5-4.5) H 01/16/18 05:27 Urine Creatinine 97.6 mg/dL (0.1-20.0) H 01/14/18 Unknown Urine Sodium 42 mmol/L 01/14/18 Unknown Urine Total Protein 64 mg/dL (5-11.8) H 01/14/18 Unknown
[2018-01-16] MEDS ORDERED: OSCAL PO SCH (10:00)
[2018-01-16] MEDS: PROCARDIA XL PO SCH (11:14)
[2018-01-16] MEDS: SODIUM CHLORIDE FLUSH SYRINGE 10 ML IV SCH ×2 (11:16→21:49)
[2018-01-16] MEDS: ZOFRAN IV PRN ×2 (11:25→20:53)
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
[2018-01-16] MEDS: PHOSLO PO SCH ×2 (12:45→18:00)
[2018-01-16] MEDS: PERCOCET 5/325 PO PRN ×2 (12:49→20:52)
--- NOTE | 2018-01-16 13:32 | Progress Note ---
Assessment and Plan Assessment and plan: 37 YO Male with Obesity, HTN, Nicotine Dependence, NSAID Use presents to ED for evaluation. Pt states that he has been feeling "sick" for the past 3 weeks. Pt states that he has experienced nausea, multiple episodes of vomiting, as well as chronic pain for which he has been taking Goody powder daily for pain relief. Pt acknowledges leg swelling, undetermined amount of weight gain. Pt denies fever, chills, CP, Palpitations, NVD, Syncope, Trauma, BRBPR, unintentional weight loss, or night sweats. Pt seen and evaluated in ED and found to have evidence of ESRD as well as Acidosis. CT Abdomen/Pelvis revealed an incidental finding of Left Renal Mass. Nephrology consulted in ED, Urology consulted in ED as per ED staff. according to additional information obtained from Mother. Pt has been with diagnosis of HTN for about 1 year and unfortunately non complaint with treatment. He follows at [facility] when he feels bad and is taken lasix and norvasc for the past year 40mg and 5 mg respectively. He smokes 3 cigarettes per day and has been on goody powder for the last 5 months. He denies knowledge of previous lab results. GALLO with possible underlying CKD UNKNOWN ETIOLOGY NSAID abuse PERITONEAL IRRITATION PLEURAL EFFUSION EDEMA SEVERE METABOLIC ACIDOSIS Hypocomplementemia Thrombocytopenia Hypokalemia LEFT HYDRONEPHROSIS Right kidney atrophy HTN LEFT RENAL MASS ANEMIA OF CHRONIC DISEASE NON COMPLIANCE Plan Continue supportive care [employer] input noted Check B12 AND FOLATE Family still decided what plan of action to take in respect to diagnosis and treatment. Spent 45 mins discussing with patient, mother and uncle. If they decided to proceed, will obtain IR for Diagnostic thoracentesis Vasculitis work up ongoing. Gentle hydration with Bicarb drip Arora ordered. May need dialysis iF no improvement, Replace electrolytes Nephrology, Urology input noted. Need biopsy once renal work up completed resume BP control Counselling about compliance stressed Discussed with machine tool builder- Left kidney mass and kidney biopsy planned for Thursday Still awaiting records DVT/GI prophy Plan discussed in detail with the patient. History Interval history: Patient seen and examined, no new complaints, Denies any chest pain, nausea, vomiting diarrhea Hospitalist Physical - Physical exam Narrative exam: General appearance: Present: no acute distress, well-nourished - EENT Eyes: Present: PERRL, EOM intact ENT: hearing intact - Neck Neck: Present: supple, normal ROM - Respiratory Respiratory effort: normal Respiratory: bilateral: CTA - Cardiovascular Rhythm: regular Heart Sounds: Present: S1 & S2. Absent: systolic murmur - Extremities Extremities: pulses intact Extremity abnormal: edema (+2 bilateral pitting edema) Peripheral Pulses: within normal limits - Abdominal General gastrointestinal: soft, non-tender, non-distended, normal bowel sounds - Integumentary Integumentary: Present: clear, warm - Psychiatric Psychiatric: appropriate mood/affect, memory intact, other (poor insight) - Neurologic Neurologic: CNII-XII intact, moves all extremities - Allied Health Allied health notes reviewed: nursing - Constitutional Vitals: Temp Pulse Resp BP Pulse Ox 98.8 F 75 18 133/74 97 01/16/18 12:57 01/16/18 12:57 01/16/18 12:57 01/16/18 12:57 01/16/18 12:57 General appearance: Present: no acute distress, well-nourished Results - Labs CBC & Chem 7: 01/16/18 08:03 01/16/18 05:27 Labs: Laboratory Last Values WBC 6.4 K/mm3 (4.5-11.0) 01/16/18 08:03 RBC 2.95 M/mm3 (3.65-5.03) L 01/16/18 08:03 Hgb 8.7 gm/dl (11.8-15.2) L 01/16/18 08:03 Hct 26.2 % (35.5-45.6) L 01/16/18 08:03 MCV 89 fl (84-94) 01/16/18 08:03 MCH 30 pg (28-32) 01/16/18 08:03 MCHC 33 % (32-34) 01/16/18 08:03 RDW 14.0 % (13.2-15.2) 01/16/18 08:03 Plt Count 79 K/mm3 (140-440) L 01/16/18 08:03 Lymph % (Auto) 7.8 % (13.4-35.0) L 01/15/18 10:25 [place] % (Auto) 7.1 % (0.0-7.3) 01/15/18 10:25 Eos % (Auto) 5.7 % (0.0-4.3) H 01/15/18 10:25 Baso % (Auto) 2.7 % (0.0-1.8) H 01/15/18 10:25 Lymph # 0.6 K/mm3 (1.2-5.4) L 01/15/18 10:25 [place] # 0.6 K/mm3 (0.0-0.8) 01/15/18 10:25 Eos # 0.5 K/mm3 (0.0-0.4) H 01/15/18 10:25 Baso # 0.2 K/mm3 (0.0-0.1) H 01/15/18 10:25 Seg Neutrophils % 76.7 % (40.0-70.0) H 01/15/18 10:25 Seg Neutrophils # 6.2 K/mm3 (1.8-7.7) 01/15/18 10:25 ESR > 140.0 mm/Hr (0-20) 01/15/18 15:17 PT 14.0 Sec. (12.2-14.9) 01/15/18 15:17 INR 1.03 (0.87-1.13) 01/15/18 15:17 APTT 36.5 Sec. (24.2-36.6) 01/15/18 15:17 Sodium 135 mmol/L (137-145) L 01/16/18 05:27 Potassium 3.3 mmol/L (3.6-5.0) L 01/16/18 05:27 Chloride 101.2 mmol/L (98-107) 01/16/18 05:27 Carbon Dioxide 18 mmol/L (22-30) L 01/16/18 05:27 Anion Gap 19 mmol/L 01/16/18 05:27 BUN 49 mg/dL (9-20) H 01/16/18 05:27 Creatinine 13.1 mg/dL (0.8-1.5) H 01/16/18 05:27 Estimated GFR 5 ml/min 01/16/18 05:27 BUN/Creatinine Ratio 4 % 01/16/18 05:27 Glucose 78 mg/dL (75-100) 01/16/18 05:27 Uric Acid 8.8 mg/dL (3.5-7.6) H 01/15/18 15:26 Calcium 5.8 mg/dL (8.4-10.2) L* 01/16/18 05:27 Phosphorus 7.70 mg/dL (2.5-4.5) H 01/16/18 05:27 Iron 32 ug/dL (49-181) L 01/14/18 04:51 TIBC 61 mcg/dL (250-450) L 01/14/18 04:51 Ferritin 1231.0 ng/mL (13.0-400.0) H 01/14/18 04:51 Total Bilirubin < 0.20 mg/dL (0.1-1.2) 01/15/18 10:25 AST 32 units/L (5-40) 01/15/18 10:25 ALT 26 units/L (7-56) 01/15/18 10:25 Alkaline Phosphatase 76 units/L (35-129) 01/15/18 10:25 Lactate Dehydrogenase 318 units/L (91-180) H 01/15/18 15:26 NT-Pro-B Natriuret Pep 1826 pg/mL (0-450) H 01/12/18 18:46 Total Protein 3.6 g/dL (6.3-8.2) L 01/15/18 10:25 Albumin 1.1 g/dL (3.9-5) L 01/15/18 10:25 Albumin/Globulin Ratio 0.4 % 01/15/18 10:25 Lipase 14 units/L (13-60) 01/12/18 14:41 Urine Color Yellow (Yellow) 01/15/18 22:00 Urine Turbidity Clear (Clear) 01/15/18 22:00 Urine pH 7.0 (5.0-7.0) 01/15/18 22:00 Ur Specific [place] 1.012 (1.003-1.030) 01/15/18 22:00 Urine Protein >500 mg/dL (Negative) 01/15/18 22:00 Urine Glucose (UA) 50 mg/dL (Negative) 01/15/18 22:00 Urine Ketones Neg mg/dL (Negative) 01/15/18 22:00 Urine Blood Mod (Negative) 01/15/18 22:00 Urine Nitrite Neg (Negative) 01/15/18 22:00 Urine Bilirubin Neg (Negative) 01/15/18 22:00 Urine Urobilinogen < 2.0 mg/dL (<2.0) 01/15/18 22:00 Ur Leukocyte Esterase Neg (Negative) 01/15/18 22:00 Urine WBC (Auto) 3.0 /HPF (0.0-6.0) 01/15/18 22:00 Urine RBC (Auto) 22.0 /HPF (0.0-6.0) 01/15/18 22:00 U Epithel Cells (Auto) 1.0 /HPF (0-13.0) 01/15/18 22:00 Urine Mucus Few /HPF 01/15/18 22:00 Urine Yeast (Budding) Few /HPF 01/15/18 22:00 Urine Creatinine 97.6 mg/dL (0.1-20.0) H 01/14/18 Unknown Protein/Creatinin Ratio 0.66 01/14/18 Unknown Urine Sodium 42 mmol/L 01/14/18 Unknown Urine Total Protein 64 mg/dL (5-11.8) H 01/14/18 Unknown Rheumatoid Factor < 10 IU/ml (0-13) 01/15/18 15:17 Complement C3 28 mg/dL (82-185) L 01/12/18 21:36 Complement C4 6 mg/dL (15-53) L 01/12/18 21:27 Tot Complement (CH50) <10 U/mL (31-60) L 01/12/18 21:27 Hepatitis A IgM Ab Non-reactive (NonReactive) 01/12/18 21:37 Hep Bs Antigen Non-reactive (Negative) 01/12/18 21:37 Hep B Core IgM Ab Non-reactive (NonReactive) 01/12/18 21:37 Hepatitis C Antibody Non-reactive (NonReactive) 01/12/18 21:37 HIV 1&2 Antibody Rapid Non react (Non React) 01/12/18 21:36 HIV P24 Antigen Non react (Non React) 01/12/18 21:36 Schistocytes Smear None seen 01/15/18 15:17
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
[2018-01-16] MEDS: SODIUM CHLORIDE FLUSH SYRINGE 10 ML IV PRN (20:53)
[2018-01-17] MEDS: PHOSLO PO SCH ×3 (09:06→17:44)
[2018-01-17 10:07] LABS: Basophils # (Auto) 0.1 K/mm3 (0.0-0.1); Basophils % (Auto) 0.9 % (0.0-1.8); Eosinophils # (Auto) 0.2 K/mm3 (0.0-0.4); Eosinophils % (Auto) 3.4 % (0.0-4.3); Hematocrit 24.6 % (35.5-45.6); Hemoglobin 8.5 gm/dl (11.8-15.2); Lymphocytes # (Auto) 1.1 K/mm3 (1.2-5.4); Lymphocytes % (Auto) 18.2 % (13.4-35.0); Mean Corpuscular HGB Conc 35 % (32-34); Mean Corpuscular Hemoglobin 31 pg (28-32); Mean Corpuscular Volume 88 fl (84-94); Monocytes # (Auto) 0.7 K/mm3 (0.0-0.8); Monocytes % (Auto) 11.5 % (0.0-7.3); Red Blood Count 2.79 M/mm3 (3.65-5.03); Red Cell Distribution Width 14.1 % (13.2-15.2)
[2018-01-17] MEDS: PROCARDIA XL PO SCH (10:07)
[2018-01-17] MEDS: SODIUM CHLORIDE FLUSH SYRINGE 10 ML IV SCH ×2 (10:08→22:44)
[2018-01-17 10:09] LABS: Platelet Count 83 K/mm3 (140-440)
[2018-01-17] MEDS: PERCOCET 5/325 PO PRN ×2 (11:11→19:38)
[2018-01-17] MEDS: ZOFRAN IV PRN ×2 (11:11→19:39)
--- NOTE | 2018-01-17 12:09 | Progress Note ---
Assessment and Plan Assessment and plan: 37 YO Male with Obesity, HTN, Nicotine Dependence, NSAID Use presents to ED for evaluation. Pt states that he has been feeling "sick" for the past 3 weeks. Pt states that he has experienced nausea, multiple episodes of vomiting, as well as chronic pain for which he has been taking Goody powder daily for pain relief. Pt acknowledges leg swelling, undetermined amount of weight gain. Pt denies fever, chills, CP, Palpitations, NVD, Syncope, Trauma, BRBPR, unintentional weight loss, or night sweats. Pt seen and evaluated in ED and found to have evidence of ESRD as well as Acidosis. CT Abdomen/Pelvis revealed an incidental finding of Left Renal Mass. Nephrology consulted in ED, Urology consulted in ED as per ED staff. according to additional information obtained from Mother. Pt has been with diagnosis of HTN for about 1 year and unfortunately non complaint with treatment. He follows at [facility] when he feels bad and is taken lasix and norvasc for the past year 40mg and 5 mg respectively. He smokes 3 cigarettes per day and has been on goody powder for the last 5 months. He denies knowledge of previous lab results. GALLO with possible underlying CKD UNKNOWN ETIOLOGY NSAID abuse PERITONEAL IRRITATION PLEURAL EFFUSION EDEMA SEVERE METABOLIC ACIDOSIS Hypocomplementemia Thrombocytopenia Hypokalemia LEFT HYDRONEPHROSIS Right kidney atrophy HTN LEFT RENAL MASS ANEMIA OF CHRONIC DISEASE NON COMPLIANCE Plan Continue supportive care Hand Paint Mixer input noted Check B12 AND FOLATE Patient wants to get second opinion once result of the biopsy is available prior to dialysis or any other invasive proceedeure, he understands from all of us that he has a right to do that and also understands the risk of delay of treatment. Family still decided what plan of action to take in respect to diagnosis and treatment. Spent 45 mins discussing with patient, mother and uncle. If they decided to proceed, will obtain IR for Diagnostic thoracentesis Vasculitis work up ongoing. Gentle hydration with Bicarb drip Arora ordered. May need dialysis iF no improvement, Replace electrolytes Nephrology, Urology input noted. Need biopsy once renal work up completed resume BP control Counselling about compliance stressed Discussed with spa manager- Left kidney mass and kidney biopsy planned for Thursday Still awaiting records DVT/GI prophy Plan discussed in detail with the patient. History Interval history: Patient seen and examined, no new complaints, Denies any chest pain, nausea, vomiting diarrhea Hospitalist Physical - Physical exam Narrative exam: General appearance: Present: no acute distress, well-nourished - EENT Eyes: Present: PERRL, EOM intact ENT: hearing intact - Neck Neck: Present: supple, normal ROM - Respiratory Respiratory effort: normal Respiratory: bilateral: CTA - Cardiovascular Rhythm: regular Heart Sounds: Present: S1 & S2. Absent: systolic murmur - Extremities Extremities: pulses intact Extremity abnormal: edema (+2 bilateral pitting edema) Peripheral Pulses: within normal limits - Abdominal General gastrointestinal: soft, non-tender, non-distended, normal bowel sounds - Integumentary Integumentary: Present: clear, warm - Psychiatric Psychiatric: appropriate mood/affect, memory intact, other (poor insight) - Neurologic Neurologic: CNII-XII intact, moves all extremities - Allied Health Allied health notes reviewed: nursing - Constitutional Vitals: Temp Pulse Resp BP Pulse Ox 98.8 F 80 20 126/77 91 01/17/18 06:37 01/17/18 06:37 01/17/18 06:37 01/17/18 06:37 01/17/18 06:37 General appearance: Present: no acute distress Results - Labs CBC & Chem 7: 01/17/18 08:03 01/17/18 08:03 Labs: Laboratory Last Values WBC 6.2 K/mm3 (4.5-11.0) 01/17/18 08:03 RBC 2.79 M/mm3 (3.65-5.03) L 01/17/18 08:03 Hgb 8.5 gm/dl (11.8-15.2) L 01/17/18 08:03 Hct 24.6 % (35.5-45.6) L 01/17/18 08:03 MCV 88 fl (84-94) 01/17/18 08:03 MCH 31 pg (28-32) 01/17/18 08:03 MCHC 35 % (32-34) H 01/17/18 08:03 RDW 14.1 % (13.2-15.2) 01/17/18 08:03 Plt Count 83 K/mm3 (140-440) L 01/17/18 08:03 Lymph % (Auto) 18.2 % (13.4-35.0) 01/17/18 08:03 [place] % (Auto) 11.5 % (0.0-7.3) H 01/17/18 08:03 Eos % (Auto) 3.4 % (0.0-4.3) 01/17/18 08:03 Baso % (Auto) 0.9 % (0.0-1.8) 01/17/18 08:03 Lymph # 1.1 K/mm3 (1.2-5.4) L 01/17/18 08:03 [place] # 0.7 K/mm3 (0.0-0.8) 01/17/18 08:03 Eos # 0.2 K/mm3 (0.0-0.4) 01/17/18 08:03 Baso # 0.1 K/mm3 (0.0-0.1) 01/17/18 08:03 Seg Neutrophils % 66.0 % (40.0-70.0) 01/17/18 08:03 Seg Neutrophils # 4.1 K/mm3 (1.8-7.7) 01/17/18 08:03 ESR > 140.0 mm/Hr (0-20) 01/15/18 15:17 PT 14.0 Sec. (12.2-14.9) 01/15/18 15:17 INR 1.03 (0.87-1.13) 01/15/18 15:17 APTT 36.5 Sec. (24.2-36.6) 01/15/18 15:17 Sodium 138 mmol/L (137-145) 01/17/18 08:03 Potassium 3.5 mmol/L (3.6-5.0) L 01/17/18 08:03 Chloride 105.3 mmol/L (98-107) 01/17/18 08:03 Carbon Dioxide 18 mmol/L (22-30) L 01/17/18 08:03 Anion Gap 18 mmol/L 01/17/18 08:03 BUN 52 mg/dL (9-20) H 01/17/18 08:03 Creatinine 13.4 mg/dL (0.8-1.5) H 01/17/18 08:03 Estimated GFR 5 ml/min 01/17/18 08:03 BUN/Creatinine Ratio 4 % 01/17/18 08:03 Glucose 73 mg/dL (75-100) L 01/17/18 08:03 Uric Acid 8.8 mg/dL (3.5-7.6) H 01/15/18 15:26 Calcium 6.0 mg/dL (8.4-10.2) L 01/17/18 08:03 Phosphorus 7.70 mg/dL (2.5-4.5) H 01/17/18 08:03 Iron 32 ug/dL (49-181) L 01/14/18 04:51 TIBC 61 mcg/dL (250-450) L 01/14/18 04:51 Ferritin 1231.0 ng/mL (13.0-400.0) H 01/14/18 04:51 Total Bilirubin < 0.20 mg/dL (0.1-1.2) 01/15/18 10:25 AST 32 units/L (5-40) 01/15/18 10:25 ALT 26 units/L (7-56) 01/15/18 10:25 Alkaline Phosphatase 76 units/L (35-129) 01/15/18 10:25 Lactate Dehydrogenase 318 units/L (91-180) H 01/15/18 15:26 NT-Pro-B Natriuret Pep 1826 pg/mL (0-450) H 01/12/18 18:46 Serum Total Protein 3.4 g/dL (6.1-8.1) L 01/13/18 15:40 Total Protein 3.6 g/dL (6.3-8.2) L 01/15/18 10:25 Albumin 1.1 g/dL (3.9-5) L 01/15/18 10:25 Albumin/Globulin Ratio 0.4 % 01/15/18 10:25 Niqfy-5-Gcdyzfoyn 0.2 g/dL (0.2-0.3) 01/13/18 15:40 Dxgco-7-Hudiwxxgx 0.8 g/dL (0.5-0.9) 01/13/18 15:40 Beta Globulins 0.3 g/dL (0.2-0.5) 01/13/18 15:40 Gamma Globulins 1.0 g/dL (0.8-1.7) 01/13/18 15:40 Abnorm Protein Band 1 see below 01/13/18 15:40 PEP Interpretation see below H 01/13/18 15:40 Lipase 14 units/L (13-60) 01/12/18 14:41 Urine Color Yellow (Yellow) 01/15/18 22:00 Urine Turbidity Clear (Clear) 01/15/18 22:00 Urine pH 7.0 (5.0-7.0) 01/15/18 22:00 Ur Specific [place] 1.012 (1.003-1.030) 01/15/18 22:00 Urine Protein >500 mg/dL (Negative) 01/15/18 22:00 Urine Glucose (UA) 50 mg/dL (Negative) 01/15/18 22:00 Urine Ketones Neg mg/dL (Negative) 01/15/18 22:00 Urine Blood Mod (Negative) 01/15/18 22:00 Urine Nitrite Neg (Negative) 01/15/18 22:00 Urine Bilirubin Neg (Negative) 01/15/18 22:00 Urine Urobilinogen < 2.0 mg/dL (<2.0) 01/15/18 22:00 Ur Leukocyte Esterase Neg (Negative) 01/15/18 22:00 Urine WBC (Auto) 3.0 /HPF (0.0-6.0) 01/15/18 22:00 Urine RBC (Auto) 22.0 /HPF (0.0-6.0) 01/15/18 22:00 U Epithel Cells (Auto) 1.0 /HPF (0-13.0) 01/15/18 22:00 Urine Mucus Few /HPF 01/15/18 22:00 Urine Yeast (Budding) Few /HPF 01/15/18 22:00 Urine Creatinine 97.6 mg/dL (0.1-20.0) H 01/14/18 Unknown Protein/Creatinin Ratio 0.66 01/14/18 Unknown Urine Sodium 42 mmol/L 01/14/18 Unknown Urine Total Protein 64 mg/dL (5-11.8) H 01/14/18 Unknown Rheumatoid Factor < 10 IU/ml (0-13) 01/15/18 15:17 Complement C3 28 mg/dL (82-185) L 01/12/18 21:36 Complement C4 6 mg/dL (15-53) L 01/12/18 21:27 Tot Complement (CH50) <10 U/mL (31-60) L 01/12/18 21:27 Hepatitis A IgM Ab Non-reactive (NonReactive) 01/12/18 21:37 Hep Bs Antigen Non-reactive (Negative) 01/12/18 21:37 Hep B Core IgM Ab Non-reactive (NonReactive) 01/12/18 21:37 Hepatitis C Antibody Non-reactive (NonReactive) 01/12/18 21:37 HIV 1&2 Antibody Rapid Non react (Non React) 01/12/18 21:36 HIV P24 Antigen Non react (Non React) 01/12/18 21:36 Schistocytes Smear None seen 01/15/18 15:17
--- NOTE | 2018-01-17 13:11 | Progress Note ---
Assessment and Plan Acute Renal Failure possibly Prerenal secondary to Volume Depletion secondary to N/V and poor appetite for 3 weeks in the setting of Diuretic use with Lasix possibly on Chronic Kidney Disease secondary to NASID use with Goody's Powder and Hypertension: - cont to have severe renal failure, no baseline available, noted to have very low complement level, hepatitis panel is negative, noted to have very high ESR, vasculitis work up is pending - LDH is mildly elevated but blood smear is negative for hemolysis, plt count cont to go down, hematology consulted, unlikely TTP - discussed in length with Dr Gonzalez, 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 Pending: MARY CARMEN, ANCA, anti GBM, SPEP. - vascular surgery consult requested for permcath placement, patient for now wants to wait for bioppsy results before starting dialysis - cont calcium acetate for hyperphosphatemia and hypocalcemia -Avoid Nephrotoxic agents-No NASID's Abdominal Pain: Nausea/Vomiting: -As per primary team Edema: -May need HD if no improvement in renal function Metabolic Acidosis secondary to renal failure: -off bicarb gtt Renal Mass, left: -CT scan of Abdomen revealed-Mild Left hydronephrosis without definite evidence of an obstructing stone. Left kidney larger than the right. There is a 3.5 cm exophytic soft tissue mass on lower pole of left kidney. - kidney biopsy as above -Urology consulted Anemia: -epogen 20,000 01/17/18 Hypertension: - on nifedipine to 60 mg -Monitor and adjust regimen as needed Subjective Date of service: 01/17/18 Principal diagnosis: renal mass Interval history: denies acute issues, for now he does not want dialysis, he wants to wait for the biopsy results first Objective - Vital Signs Vital signs: Vital Signs - 12hr 01/17/18 06:37 Temperature 98.8 F Pulse Rate 80 Respiratory 20 Rate Blood Pressure 126/77 O2 Sat by Pulse 91 Oximetry - General Appearance General appearance: well-developed, well-nourished EENT: ATNC, PERRL, mucous membranes moist Neck: no JVD, no carotid bruit Respiratory: Present: Clear to Ascultation. Absent: Rales, Ronchi Cardiology: regular, S1S2 Gastrointestinal: normoactive bowel sounds, no tenderness, no distended, obese Integumentary: no rash, warm and dry Neurologic: no focal deficit, no asterixis, alert and oriented x3 Musculoskeletal: other (no edema in BLE) Psychiatric: mood/affect appropriate, cooperative - Lab 01/17/18 08:03 01/17/18 08:03 Most recent lab results Calcium 6.0 mg/dL (8.4-10.2) L 01/17/18 08:03 Phosphorus 7.70 mg/dL (2.5-4.5) H 01/17/18 08:03 Urine Creatinine 97.6 mg/dL (0.1-20.0) H 01/14/18 Unknown Urine Sodium 42 mmol/L 01/14/18 Unknown Urine Total Protein 64 mg/dL (5-11.8) H 01/14/18 Unknown
[2018-01-17 17:50] LABS: Myeloperoxidase Antibody <1.0 AI (<1.0)
[2018-01-17] MEDS: SODIUM CHLORIDE FLUSH SYRINGE 10 ML IV PRN (19:39)
[2018-01-18 05:07] LABS: Basophils # (Auto) 0.1 K/mm3 (0.0-0.1); Basophils % (Auto) 0.8 % (0.0-1.8); Eosinophils # (Auto) 0.3 K/mm3 (0.0-0.4); Eosinophils % (Auto) 4.1 % (0.0-4.3); Hematocrit 25.6 % (35.5-45.6); Hemoglobin 8.9 gm/dl (11.8-15.2); Lymphocytes # (Auto) 1.4 K/mm3 (1.2-5.4); Lymphocytes % (Auto) 19.9 % (13.4-35.0); Mean Corpuscular HGB Conc 35 % (32-34); Mean Corpuscular Hemoglobin 31 pg (28-32); Mean Corpuscular Volume 88 fl (84-94); Monocytes # (Auto) 0.8 K/mm3 (0.0-0.8); Monocytes % (Auto) 11.7 % (0.0-7.3); Red Blood Count 2.92 M/mm3 (3.65-5.03); Red Cell Distribution Width 14.1 % (13.2-15.2)
[2018-01-18 05:18] LABS: Calcium 6.2 mg/dL (8.4-10.2)
[2018-01-18 05:19] LABS: Platelet Count 92 K/mm3 (140-440)
[2018-01-18] MEDS: PHOSLO PO SCH ×3 (08:33→18:02)
--- NOTE | 2018-01-18 10:18 | Progress Note ---
Assessment and Plan Assessment and plan: 37 YO Male with Obesity, HTN, Nicotine Dependence, NSAID Use presents to ED for evaluation. Pt states that he has been feeling "sick" for the past 3 weeks. Pt states that he has experienced nausea, multiple episodes of vomiting, as well as chronic pain for which he has been taking Goody powder daily for pain relief. Pt acknowledges leg swelling, undetermined amount of weight gain. Pt denies fever, chills, CP, Palpitations, NVD, Syncope, Trauma, BRBPR, unintentional weight loss, or night sweats. Pt seen and evaluated in ED and found to have evidence of ESRD as well as Acidosis. CT Abdomen/Pelvis revealed an incidental finding of Left Renal Mass. Nephrology consulted in ED, Urology consulted in ED as per ED staff. according to additional information obtained from Mother. Pt has been with diagnosis of HTN for about 1 year and unfortunately non complaint with treatment. He follows at [facility] when he feels bad and is taken lasix and norvasc for the past year 40mg and 5 mg respectively. He smokes 3 cigarettes per day and has been on goody powder for the last 5 months. He denies knowledge of previous lab results. GALLO with possible underlying CKD UNKNOWN ETIOLOGY NSAID abuse PERITONEAL IRRITATION PLEURAL EFFUSION EDEMA SEVERE METABOLIC ACIDOSIS Hypocomplementemia Thrombocytopenia Hypokalemia LEFT HYDRONEPHROSIS Right kidney atrophy HTN LEFT RENAL MASS ANEMIA OF CHRONIC DISEASE NON COMPLIANCE Plan Continue supportive care Pastry Artist input noted For Biopsy today Patient wants to get second opinion once result of the biopsy is available prior to dialysis or any other invasive procedure, he understands from all of us that he has a right to do that and also understands the risk of delay of treatment. Family still decided what plan of action to take in respect to diagnosis and treatment. Vasculitis work up ongoing. Gentle hydration with Bicarb drip Arora ordered. May need dialysis iF no improvement, Replace electrolytes Nephrology, Urology input noted. Need biopsy once renal work up completed resume BP control Counselling about compliance stressed Discussed with bakery helper- Left kidney mass and kidney biopsy planned for Thursday Still awaiting records DVT/GI prophy Plan discussed in detail with the patient. History Interval history: Patient seen and examined, no new complaints, for biopsy today Hospitalist Physical - Physical exam Narrative exam: General appearance: Present: no acute distress, well-nourished - EENT Eyes: Present: PERRL, EOM intact ENT: hearing intact - Neck Neck: Present: supple, normal ROM - Respiratory Respiratory effort: normal Respiratory: bilateral: CTA - Cardiovascular Rhythm: regular Heart Sounds: Present: S1 & S2. Absent: systolic murmur - Extremities Extremities: pulses intact Extremity abnormal: edema (+2 bilateral pitting edema) Peripheral Pulses: within normal limits - Abdominal General gastrointestinal: soft, non-tender, non-distended, normal bowel sounds - Integumentary Integumentary: Present: clear, warm - Psychiatric Psychiatric: appropriate mood/affect, memory intact, other (poor insight) - Neurologic Neurologic: CNII-XII intact, moves all extremities - Allied Health Allied health notes reviewed: nursing - Constitutional Vitals: Temp Pulse Resp BP Pulse Ox 98.4 F 88 18 122/67 95 01/18/18 06:24 01/18/18 00:59 01/18/18 06:24 01/18/18 06:24 01/18/18 00:59 General appearance: Present: no acute distress Results - Labs CBC & Chem 7: 01/18/18 04:37 01/18/18 04:37 Labs: Laboratory Last Values WBC 6.9 K/mm3 (4.5-11.0) 01/18/18 04:37 RBC 2.92 M/mm3 (3.65-5.03) L 01/18/18 04:37 Hgb 8.9 gm/dl (11.8-15.2) L 01/18/18 04:37 Hct 25.6 % (35.5-45.6) L 01/18/18 04:37 MCV 88 fl (84-94) 01/18/18 04:37 MCH 31 pg (28-32) 01/18/18 04:37 MCHC 35 % (32-34) H 01/18/18 04:37 RDW 14.1 % (13.2-15.2) 01/18/18 04:37 Plt Count 92 K/mm3 (140-440) L 01/18/18 04:37 Lymph % (Auto) 19.9 % (13.4-35.0) 01/18/18 04:37 [place] % (Auto) 11.7 % (0.0-7.3) H 01/18/18 04:37 Eos % (Auto) 4.1 % (0.0-4.3) 01/18/18 04:37 Baso % (Auto) 0.8 % (0.0-1.8) 01/18/18 04:37 Lymph # 1.4 K/mm3 (1.2-5.4) 01/18/18 04:37 [place] # 0.8 K/mm3 (0.0-0.8) 01/18/18 04:37 Eos # 0.3 K/mm3 (0.0-0.4) 01/18/18 04:37 Baso # 0.1 K/mm3 (0.0-0.1) 01/18/18 04:37 Seg Neutrophils % 63.5 % (40.0-70.0) 01/18/18 04:37 Seg Neutrophils # 4.4 K/mm3 (1.8-7.7) 01/18/18 04:37 ESR > 140.0 mm/Hr (0-20) 01/15/18 15:17 PT 14.0 Sec. (12.2-14.9) 01/15/18 15:17 INR 1.03 (0.87-1.13) 01/15/18 15:17 APTT 36.5 Sec. (24.2-36.6) 01/15/18 15:17 Sodium 134 mmol/L (137-145) L 01/18/18 04:37 Potassium 3.5 mmol/L (3.6-5.0) L 01/18/18 04:37 Chloride 102.4 mmol/L (98-107) 01/18/18 04:37 Carbon Dioxide 19 mmol/L (22-30) L 01/18/18 04:37 Anion Gap 16 mmol/L 01/18/18 04:37 BUN 52 mg/dL (9-20) H 01/18/18 04:37 Creatinine 13.2 mg/dL (0.8-1.5) H 01/18/18 04:37 Estimated GFR 5 ml/min 01/18/18 04:37 BUN/Creatinine Ratio 4 % 01/18/18 04:37 Glucose 82 mg/dL (75-100) 01/18/18 04:37 Uric Acid 8.8 mg/dL (3.5-7.6) H 01/15/18 15:26 Calcium 6.2 mg/dL (8.4-10.2) L 01/18/18 04:37 Phosphorus 7.60 mg/dL (2.5-4.5) H 01/18/18 04:37 Iron 32 ug/dL (49-181) L 01/14/18 04:51 TIBC 61 mcg/dL (250-450) L 01/14/18 04:51 Ferritin 1231.0 ng/mL (13.0-400.0) H 01/14/18 04:51 Total Bilirubin < 0.20 mg/dL (0.1-1.2) 01/15/18 10:25 AST 32 units/L (5-40) 01/15/18 10:25 ALT 26 units/L (7-56) 01/15/18 10:25 Alkaline Phosphatase 76 units/L (35-129) 01/15/18 10:25 Lactate Dehydrogenase 318 units/L (91-180) H 01/15/18 15:26 NT-Pro-B Natriuret Pep 1826 pg/mL (0-450) H 01/12/18 18:46 Serum Total Protein 3.4 g/dL (6.1-8.1) L 01/13/18 15:40 Total Protein 3.6 g/dL (6.3-8.2) L 01/15/18 10:25 Albumin 1.1 g/dL (3.9-5) L 01/15/18 10:25 Albumin/Globulin Ratio 0.4 % 01/15/18 10:25 Qzwoo-1-Igdqwafsj 0.2 g/dL (0.2-0.3) 01/13/18 15:40 Ospjl-4-Uwufbeufa 0.8 g/dL (0.5-0.9) 01/13/18 15:40 Beta Globulins 0.3 g/dL (0.2-0.5) 01/13/18 15:40 Gamma Globulins 1.0 g/dL (0.8-1.7) 01/13/18 15:40 Abnorm Protein Band 1 see below 01/13/18 15:40 PEP Interpretation see below H 01/13/18 15:40 Lipase 14 units/L (13-60) 01/12/18 14:41 Urine Color Yellow (Yellow) 01/15/18 22:00 Urine Turbidity Clear (Clear) 01/15/18 22:00 Urine pH 7.0 (5.0-7.0) 01/15/18 22:00 Ur Specific [place] 1.012 (1.003-1.030) 01/15/18 22:00 Urine Protein >500 mg/dL (Negative) 01/15/18 22:00 Urine Glucose (UA) 50 mg/dL (Negative) 01/15/18 22:00 Urine Ketones Neg mg/dL (Negative) 01/15/18 22:00 Urine Blood Mod (Negative) 01/15/18 22:00 Urine Nitrite Neg (Negative) 01/15/18 22:00 Urine Bilirubin Neg (Negative) 01/15/18 22:00 Urine Urobilinogen < 2.0 mg/dL (<2.0) 01/15/18 22:00 Ur Leukocyte Esterase Neg (Negative) 01/15/18 22:00 Urine WBC (Auto) 3.0 /HPF (0.0-6.0) 01/15/18 22:00 Urine RBC (Auto) 22.0 /HPF (0.0-6.0) 01/15/18 22:00 U Epithel Cells (Auto) 1.0 /HPF (0-13.0) 01/15/18 22:00 Urine Mucus Few /HPF 01/15/18 22:00 Urine Yeast (Budding) Few /HPF 01/15/18 22:00 Urine Creatinine 97.6 mg/dL (0.1-20.0) H 01/14/18 Unknown Protein/Creatinin Ratio 0.66 01/14/18 Unknown Urine Sodium 42 mmol/L 01/14/18 Unknown Urine Total Protein 64 mg/dL (5-11.8) H 01/14/18 Unknown Rheumatoid Factor < 10 IU/ml (0-13) 01/15/18 15:17 Proteinase 3 (PR3) Ab <1.0 AI (<1.0) 01/13/18 15:40 Myeloperoxidase Ab <1.0 AI (<1.0) 01/13/18 15:40 Double Strand DNA Ab 1 IU/mL (<=4) 01/13/18 15:40 Glomerular Base Mem IgG <1.0 AI (<1.0) 01/13/18 15:40 Complement C3 28 mg/dL (82-185) L 01/12/18 21:36 Complement C4 6 mg/dL (15-53) L 01/12/18 21:27 Tot Complement (CH50) <10 U/mL (31-60) L 01/12/18 21:27 Hepatitis A IgM Ab Non-reactive (NonReactive) 01/12/18 21:37 Hep Bs Antigen Non-reactive (Negative) 01/12/18 21:37 Hep B Core IgM Ab Non-reactive (NonReactive) 01/12/18 21:37 Hepatitis C Antibody Non-reactive (NonReactive) 01/12/18 21:37 HIV 1&2 Antibody Rapid Non react (Non React) 01/12/18 21:36 HIV P24 Antigen Non react (Non React) 01/12/18 21:36 Schistocytes Smear None seen 01/15/18 15:17
[2018-01-18] MEDS: SODIUM CHLORIDE FLUSH SYRINGE 10 ML IV SCH ×2 (10:35→21:02)
[2018-01-18] MEDS: PROCARDIA XL PO SCH (10:35)
[2018-01-18] MEDS ORDERED: SUBLIMAZE IV ONE (10:53)
[2018-01-18] MEDS ORDERED: VERSED IV ONE (10:53)
[2018-01-18] MEDS ORDERED: XYLOCAINE 1% 20 mL ONE (11:11)
--- NOTE | 2018-01-18 11:25 | Progress Note ---
Assessment and Plan Acute Renal Failure possibly Prerenal secondary to Volume Depletion secondary to N/V and poor appetite for 3 weeks in the setting of Diuretic use with Lasix possibly on Chronic Kidney Disease secondary to NASID use with Goody's Powder and Hypertension: - secondary Gn work up is negative except for low complement, MARY CARMEN is pending, kidney biopsy today - hematology consulted, unlikely TTP - discussed in length with Dr Gonzalez, left kidney to r/o malignancy and secondary GN, per radiology the mast is just hemorrhagic cyst, no indication for biopsy - vascular surgery consult requested for permcath placement, patient for now wants to wait for biopsy results before starting dialysis - cont calcium acetate for hyperphosphatemia and hypocalcemia -Avoid Nephrotoxic agents-No NASID's Abdominal Pain: Nausea/Vomiting: -As per primary team Edema: -May need HD if no improvement in renal function Metabolic Acidosis secondary to renal failure: -off bicarb gtt Renal Mass, left: -CT scan of Abdomen revealed-Mild Left hydronephrosis without definite evidence of an obstructing stone. Left kidney larger than the right. There is a 3.5 cm exophytic soft tissue mass on lower pole of left kidney. -Urology consulted Anemia: -epogen 20,000 01/17/18 Hypertension: - on nifedipine to 60 mg -Monitor and adjust regimen as needed Subjective Date of service: 01/18/18 Principal diagnosis: renal mass Interval history: was in radiology suite fir kidney biopsy Objective - Vital Signs Vital signs: Vital Signs - 12hr 01/18/18 01/18/18 00:59 06:24 Temperature 98.4 F 98.4 F Pulse Rate 88 Respiratory 18 18 Rate Blood Pressure 118/79 122/67 O2 Sat by Pulse 95 Oximetry - Lab 01/18/18 04:37 01/18/18 04:37 Most recent lab results Calcium 6.2 mg/dL (8.4-10.2) L 01/18/18 04:37 Phosphorus 7.60 mg/dL (2.5-4.5) H 01/18/18 04:37 Urine Creatinine 97.6 mg/dL (0.1-20.0) H 01/14/18 Unknown Urine Sodium 42 mmol/L 01/14/18 Unknown Urine Total Protein 64 mg/dL (5-11.8) H 01/14/18 Unknown
--- NOTE | 2018-01-18 13:33 | Cat Scan Report ---
CT BIOPSY RENAL LEFT History: Glomerulonephritis. Description of procedure: Informed consent was obtained. Sterile technique was utilized. 1% lidocaine for skin anesthesia. Conscious sedation was accomplished with Versed and fentanyl. The patient was sedated for 15 minutes. Independent cardiorespiratory monitoring by RN. Intraobserver time of [address] guidance, a 17-gauge introducer needle was advanced to the inferior pole of the left kidney. 2 separate 18-gauge core biopsies were obtained for pathologic analysis. No complications. Impression: Successful CT-guided biopsy of the inferior pole of the left kidney.
[2018-01-18] MEDS: PERCOCET 5/325 PO PRN ×2 (14:01→20:03)
[2018-01-18] MEDS: ZOFRAN IV PRN ×2 (14:03→21:02)
[2018-01-18 20:51] LABS: Bacteria,Urine 1+ /HPF (Negative); Bilirubin,Urine NEG (Negative); Blood,Urine MOD (Negative); Color,Urine Yellow (Yellow); Urobilinogen,Urine < 2.0 mg/dL (<2.0)
[2018-01-18 20:55] LABS: Protein,Urine >500 mg/dL (Negative)
[2018-01-18 22:26] LABS: ANA Screen, IFA Positive (Negative)
[2018-01-19] MEDS: PHOSLO PO SCH (08:00)
--- NOTE | 2018-01-19 09:40 | Progress Note ---
Assessment and Plan Assessment and plan: 37 YO Male with Obesity, HTN, Nicotine Dependence, NSAID Use presents to ED for evaluation. Pt states that he has been feeling "sick" for the past 3 weeks. Pt states that he has experienced nausea, multiple episodes of vomiting, as well as chronic pain for which he has been taking Goody powder daily for pain relief. Pt acknowledges leg swelling, undetermined amount of weight gain. Pt denies fever, chills, CP, Palpitations, NVD, Syncope, Trauma, BRBPR, unintentional weight loss, or night sweats. Pt seen and evaluated in ED and found to have evidence of ESRD as well as Acidosis. CT Abdomen/Pelvis revealed an incidental finding of Left Renal Mass. Nephrology consulted in ED, Urology consulted in ED as per ED staff. according to additional information obtained from Mother. Pt has been with diagnosis of HTN for about 1 year and unfortunately non complaint with treatment. He follows at [facility] when he feels bad and is taken lasix and norvasc for the past year 40mg and 5 mg respectively. He smokes 3 cigarettes per day and has been on goody powder for the last 5 months. He denies knowledge of previous lab results. GALLO with possible underlying CKD UNKNOWN ETIOLOGY NSAID abuse PERITONEAL IRRITATION positive MARY CARMEN PLEURAL EFFUSION EDEMA SEVERE METABOLIC ACIDOSIS Hypocomplementemia Thrombocytopenia Hypokalemia LEFT HYDRONEPHROSIS Right kidney atrophy HTN LEFT RENAL MASS/CYST ANEMIA OF CHRONIC DISEASE NON COMPLIANCE Plan Continue supportive care Elevator Operator input noted For Biopsy Done pending result Patient understands our recommendation is for initiation of dialysis MARCE Patient wants to get second opinion once result of the biopsy is available prior to dialysis or any other invasive procedure, he understands from all of us that he has a right to do that and also understands the risk of delay of treatment. Family still decided what plan of action to take in respect to diagnosis and treatment. Vasculitis work up ongoing. Gentle hydration with Bicarb drip Arora ordered. May need dialysis iF no improvement, Replace electrolytes Nephrology, Urology input noted. Need biopsy once renal work up completed resume BP control Counselling about compliance stressed DVT/GI prophy Plan discussed in detail with the patient. History Interval history: Patient seen and examined, no new complaints, doing well post biopsy no overt hematouria Hospitalist Physical - Physical exam Narrative exam: General appearance: Present: no acute distress, well-nourished - EENT Eyes: Present: PERRL, EOM intact ENT: hearing intact - Neck Neck: Present: supple, normal ROM - Respiratory Respiratory effort: normal Respiratory: bilateral: CTA - Cardiovascular Rhythm: regular Heart Sounds: Present: S1 & S2. Absent: systolic murmur - Extremities Extremities: pulses intact Extremity abnormal: edema (+2 bilateral pitting edema) Peripheral Pulses: within normal limits - Abdominal General gastrointestinal: soft, non-tender, non-distended, normal bowel sounds - Integumentary Integumentary: Present: clear, warm - Psychiatric Psychiatric: appropriate mood/affect, memory intact, other (poor insight) - Neurologic Neurologic: CNII-XII intact, moves all extremities - Allied Health Allied health notes reviewed: nursing - Constitutional Vitals: Temp Pulse Resp BP Pulse Ox 98.6 F 87 16 126/78 97 01/18/18 23:48 01/18/18 23:48 01/18/18 23:48 01/18/18 23:48 01/18/18 23:48 General appearance: Present: no acute distress Results - Labs CBC & Chem 7: 01/19/18 10:18 01/19/18 10:18 Labs: Laboratory Last Values WBC 6.9 K/mm3 (4.5-11.0) 01/18/18 04:37 RBC 2.92 M/mm3 (3.65-5.03) L 01/18/18 04:37 Hgb 8.9 gm/dl (11.8-15.2) L 01/18/18 04:37 Hct 25.6 % (35.5-45.6) L 01/18/18 04:37 MCV 88 fl (84-94) 01/18/18 04:37 MCH 31 pg (28-32) 01/18/18 04:37 MCHC 35 % (32-34) H 01/18/18 04:37 RDW 14.1 % (13.2-15.2) 01/18/18 04:37 Plt Count 92 K/mm3 (140-440) L 01/18/18 04:37 Lymph % (Auto) 19.9 % (13.4-35.0) 01/18/18 04:37 Caroline % (Auto) 11.7 % (0.0-7.3) H 01/18/18 04:37 Eos % (Auto) 4.1 % (0.0-4.3) 01/18/18 04:37 Baso % (Auto) 0.8 % (0.0-1.8) 01/18/18 04:37 Lymph # 1.4 K/mm3 (1.2-5.4) 01/18/18 04:37 Caroline # 0.8 K/mm3 (0.0-0.8) 01/18/18 04:37 Eos # 0.3 K/mm3 (0.0-0.4) 01/18/18 04:37 Baso # 0.1 K/mm3 (0.0-0.1) 01/18/18 04:37 Seg Neutrophils % 63.5 % (40.0-70.0) 01/18/18 04:37 Seg Neutrophils # 4.4 K/mm3 (1.8-7.7) 01/18/18 04:37 ESR > 140.0 mm/Hr (0-20) 01/15/18 15:17 PT 14.0 Sec. (12.2-14.9) 01/15/18 15:17 INR 1.03 (0.87-1.13) 01/15/18 15:17 APTT 36.5 Sec. (24.2-36.6) 01/15/18 15:17 Sodium 134 mmol/L (137-145) L 01/18/18 04:37 Potassium 3.5 mmol/L (3.6-5.0) L 01/18/18 04:37 Chloride 102.4 mmol/L (98-107) 01/18/18 04:37 Carbon Dioxide 19 mmol/L (22-30) L 01/18/18 04:37 Anion Gap 16 mmol/L 01/18/18 04:37 BUN 52 mg/dL (9-20) H 01/18/18 04:37 Creatinine 13.2 mg/dL (0.8-1.5) H 01/18/18 04:37 Estimated GFR 5 ml/min 01/18/18 04:37 BUN/Creatinine Ratio 4 % 01/18/18 04:37 Glucose 82 mg/dL (75-100) 01/18/18 04:37 Uric Acid 8.8 mg/dL (3.5-7.6) H 01/15/18 15:26 Calcium 6.2 mg/dL (8.4-10.2) L 01/18/18 04:37 Phosphorus 7.60 mg/dL (2.5-4.5) H 01/18/18 04:37 Iron 32 ug/dL (49-181) L 01/14/18 04:51 TIBC 61 mcg/dL (250-450) L 01/14/18 04:51 Ferritin 1231.0 ng/mL (13.0-400.0) H 01/14/18 04:51 Total Bilirubin < 0.20 mg/dL (0.1-1.2) 01/15/18 10:25 AST 32 units/L (5-40) 01/15/18 10:25 ALT 26 units/L (7-56) 01/15/18 10:25 Alkaline Phosphatase 76 units/L (35-129) 01/15/18 10:25 Lactate Dehydrogenase 318 units/L (91-180) H 01/15/18 15:26 NT-Pro-B Natriuret Pep 1826 pg/mL (0-450) H 01/12/18 18:46 Serum Total Protein 3.4 g/dL (6.1-8.1) L 01/13/18 15:40 Total Protein 3.6 g/dL (6.3-8.2) L 01/15/18 10:25 Albumin 1.1 g/dL (3.9-5) L 01/15/18 10:25 Albumin/Globulin Ratio 0.4 % 01/15/18 10:25 Fqnwi-5-Qubxnmzgz 0.2 g/dL (0.2-0.3) 01/13/18 15:40 Dpsxx-4-Zwfxcukyt 0.8 g/dL (0.5-0.9) 01/13/18 15:40 Beta Globulins 0.3 g/dL (0.2-0.5) 01/13/18 15:40 Gamma Globulins 1.0 g/dL (0.8-1.7) 01/13/18 15:40 Abnorm Protein Band 1 see below 01/13/18 15:40 PEP Interpretation see below H 01/13/18 15:40 Lipase 14 units/L (13-60) 01/12/18 14:41 Urine Color Yellow (Yellow) 01/18/18 20: Urine Turbidity Slightly-cloudy (Clear) 01/18/18 20: Urine pH 6.0 (5.0-7.0) 01/18/18 20: Ur Specific [place] 1.022 (1.003-1.030) 01/18/18 20: Urine Protein >500 mg/dL (Negative) 01/18/18 20: Urine Glucose (UA) 50 mg/dL (Negative) 01/18/18 20: Urine Ketones Neg mg/dL (Negative) 01/18/18 20: Urine Blood Mod (Negative) 01/18/18 20: Urine Nitrite Neg (Negative) 01/18/18: Urine Bilirubin Neg (Negative) 01/18/18: Urine Urobilinogen < 2.0 mg/dL (<2.0) 01/18/18 20: Ur Leukocyte Esterase Neg (Negative) 01/18/18 20: Urine WBC (Auto) 6.0 /HPF (0.0-6.0) 01/18/18 20: Urine RBC (Auto) 45.0 /HPF (0.0-6.0) 01/18/18 20: U Epithel Cells (Auto) 1.0 /HPF (0-13.0) 01/18/18 20: Urine Bacteria (Auto) 1+ /HPF (Negative) 01/18/18 20: Urine Mucus Few /HPF 01/15/18 22:00 Urine Yeast (Budding) Few /HPF 01/15/18 22:00 Urine Creatinine 97.6 mg/dL (0.1-20.0) H 01/14/18 Unknown Protein/Creatinin Ratio 0.66 01/14/18 Unknown Urine Sodium 42 mmol/L 01/14/18 Unknown Urine Total Protein 64 mg/dL (5-11.8) H 01/14/18 Unknown Rheumatoid Factor < 10 IU/ml (0-13) 01/15/18 15:17 MARY CARMEN Screen Positive (Negative) H 01/13/18 15:40 MARY CARMEN Titer 1:320 (Negative) H 01/13/18 15:40 MARY CARMEN Pattern Speckled 01/13/18 15:40 Proteinase 3 (PR3) Ab <1.0 AI (<1.0) 01/13/18 15:40 Myeloperoxidase Ab <1.0 AI (<1.0) 01/13/18 15:40 Double Strand DNA Ab 1 IU/mL (<=4) 01/13/18 15:40 Glomerular Base Mem IgG <1.0 AI (<1.0) 01/13/18 15:40 Complement C3 28 mg/dL (82-185) L 01/12/18 21:36 Complement C4 6 mg/dL (15-53) L 01/12/18 21:27 Tot Complement (CH50) <10 U/mL (31-60) L 01/12/18 21:27 Hepatitis A IgM Ab Non-reactive (NonReactive) 01/12/18 21:37 Hep Bs Antigen Non-reactive (Negative) 01/12/18 21:37 Hep B Core IgM Ab Non-reactive (NonReactive) 01/12/18 21:37 Hepatitis C Antibody Non-reactive (NonReactive) 01/12/18 21:37 HIV 1&2 Antibody Rapid Non react (Non React) 01/12/18 21:36 HIV P24 Antigen Non react (Non React) 01/12/18 21:36 Schistocytes Smear None seen 01/15/18 15:17
--- NOTE | 2018-01-19 09:52 | Progress Note ---
Assessment and Plan Acute Renal Failure possibly Prerenal secondary to Volume Depletion secondary to N/V and poor appetite for 3 weeks in the setting of Diuretic use with Lasix possibly on Chronic Kidney Disease secondary to NASID use with Goody's Powder and Hypertension: -Renal labs reviewed. Serum creatinine 13.2 with a GFR of 5 ml/min. No improvement in renal function. -Patient continues to refuse hemodialysis at this time. States he wants to wait for the renal biopsy results before deciding if he wants to start on hemodialysis despite medical advice that he needs hemodialysis prior to discharge. -Patient refused Perm-catheter yesterday -S/P Renal biopsy yesterday on 01/18/18 -Secondary GN work up revealed: positive MARY CARMEN-patient will need Rheumatology evaluation and may need Lupus treatment until biopsy test is resulted -Avoid Nephrotoxic agents-No NSAID's -No REBECA or ARB due to advanced renal failure -Obtain daily weights -Monitor I/O's -Patient aware that refusing hemodialysis can result in Pulmonary Edema/Volume Overload, Altered Mentation, CHF, Worsening of Nausea/Vomiting, Worsening Edema , Hyperkalemia and -Case discussed with Primary team-Dr. Maria Renal Mass, left: -CT scan of Abdomen revealed-Mild Left hydronephrosis without definite evidence of an obstructing stone. Left kidney larger than the right. There is a 3.5 cm exophytic soft tissue mass on lower pole of left kidney. -Per radiology the mass is just an hemorrhagic cyst, no indication for biopsy -Urology onboard Hyperphosphatemia: -On Phoslo-(Calcium Acetate) 1334 mg po TID with meals -Low phosphorus diet Abdominal Pain: Nausea/Vomiting: -On Zofran prn for nausea -On Oxycodone prn for pain -As per primary team Anemia: -Monitor H/H -On Epogen 20,000 units with HD Hypertension: -Stable on Nifedipine 60 mg po daily -Monitor and adjust regimen as needed Subjective Date of service: 01/19/18 Principal diagnosis: renal mass Interval history: Patient seen lying in bed. Awake and alert. States he does not want HD until get results of biopsy. Objective - Vital Signs Vital signs: Vital Signs - 12hr 01/18/18 01/18/18 22:00 23:48 Temperature 98.6 F Pulse Rate 87 Pulse Rate [ 72 Left Radial] Respiratory 16 Rate Blood Pressure 126/78 O2 Sat by Pulse 97 Oximetry - General Appearance General appearance: well-developed, appears stated age, fatigue EENT: ATNC, PERRL, hearing intact, vision intact Neck: no JVD, supple Respiratory: Present: Decreased Breath Sounds Cardiology: regular, S1S2 Gastrointestinal: normoactive bowel sounds Integumentary: warm and dry Neurologic: alert and oriented x3 Musculoskeletal: other (2+ edema to BLE) - Lab 01/18/18 04:37 01/18/18 04:37 Most recent lab results Calcium 6.2 mg/dL (8.4-10.2) L 01/18/18 04:37 Phosphorus 7.60 mg/dL (2.5-4.5) H 01/18/18 04:37 Urine Creatinine 97.6 mg/dL (0.1-20.0) H 01/14/18 Unknown Urine Sodium 42 mmol/L 01/14/18 Unknown Urine Total Protein 64 mg/dL (5-11.8) H 01/14/18 Unknown
[2018-01-19] MEDS: PROCARDIA XL PO SCH (09:59)
[2018-01-19] MEDS: SODIUM CHLORIDE FLUSH SYRINGE 10 ML IV SCH (10:00)
[2018-01-19 11:48] LABS: Basophils # (Auto) 0.1 K/mm3 (0.0-0.1); Basophils % (Auto) 0.9 % (0.0-1.8); Eosinophils # (Auto) 0.3 K/mm3 (0.0-0.4); Eosinophils % (Auto) 4.3 % (0.0-4.3); Hematocrit 28.1 % (35.5-45.6); Hemoglobin 9.4 gm/dl (11.8-15.2); Lymphocytes # (Auto) 1.5 K/mm3 (1.2-5.4); Lymphocytes % (Auto) 18.6 % (13.4-35.0); Mean Corpuscular HGB Conc 33 % (32-34); Mean Corpuscular Hemoglobin 30 pg (28-32); Mean Corpuscular Volume 89 fl (84-94); Monocytes # (Auto) 0.9 K/mm3 (0.0-0.8); Monocytes % (Auto) 10.8 % (0.0-7.3); Platelet Count 85 K/mm3 (140-440); Red Blood Count 3.16 M/mm3 (3.65-5.03); Red Cell Distribution Width 13.9 % (13.2-15.2)
[2018-01-19 12:08] LABS: Calcium 6.4 mg/dL (8.4-10.2)
[2018-01-19 12:17] VITALS: BP 112/59
--- NOTE | 2018-01-19 14:28 | Discharge Summary ---
Providers - Providers Date of Admission: 01/12/18 18:50 Attending physician: GILL BUCK MD 01/12/18 18:56 Consult to Physician [CONS] Stat Comment: Consulting Provider: KENROY FRIAS Physician Instructions: Reason For Exam: renal mass 01/12/18 20:25 Consult to Physician [CONS] Routine Comment: Consulting Provider: RUBY WEISS Physician Instructions: Reason For Exam: ESRD 01/15/18 15:25 Consult to Physician [CONS] Routine Comment: Consulting Provider: CEASAR CHANG Physician Instructions: Reason For Exam: low platelet, anemia and renal failure r/o TTP/HUS 01/16/18 09:52 Consult to Physician [CONS] Routine Comment: Consulting Provider: HINA FINCH Physician Instructions: Reason For Exam: permcath placement can be done Thursday 01/18 Primary care physician: DUCTFIXING PLUMBER Hospitalization Reason for admission: gallo Condition: Stable Hospital course: 37 YO Male with Obesity, HTN, Nicotine Dependence, NSAID Use presents to ED for evaluation. Pt states that he has been feeling "sick" for the past 3 weeks. Pt states that he has experienced nausea, multiple episodes of vomiting, as well as chronic pain for which he has been taking Goody powder daily for pain relief. Pt acknowledges leg swelling, undetermined amount of weight gain. Pt denies fever, chills, CP, Palpitations, NVD, Syncope, Trauma, BRBPR, unintentional weight loss, or night sweats. Pt seen and evaluated in ED and found to have evidence of ESRD as well as Acidosis. CT Abdomen/Pelvis revealed an incidental finding of Left Renal Mass. Nephrology consulted in ED, Urology consulted in ED as per ED staff. according to additional information obtained from Mother. Pt has been with diagnosis of HTN for about 1 year and unfortunately non complaint with treatment. He follows at [facility] when he feels bad and is taken lasix and norvasc for the past year 40mg and 5 mg respectively. He smokes 3 cigarettes per day and has been on goody powder for the last 5 months. He denies knowledge of previous lab results. On admission the patient was quickly started on workup for kidney disease. Complement studies were sent and came back low patient had a slight this workup sent and was noted to be positive MARY CARMEN. Patient had extensive discussion with lunch cook with myself with a recommendation to initiate hemodialysis prior to discharge the patient and family refused and stated that it would like a second and third opinion. They did a rather agreed to have a biopsy done. A review of noted renal mass with radiology indicated that this is more of a hemorrhagic cyst. All findings were discussed with the patient including positive MARY CARMEN and the need for rheumatology evaluation as patient may need treatment for lupus. Patient verbalized understanding and was appreciated off treatment but signed out AGAINST MEDICAL ADVICE GALLO with possible secondary to vasmotor nephrology with underlying CKD of unknown etiology NSAID abuse PERITONEAL IRRITATION positive MARY CARMEN PLEURAL EFFUSION EDEMA SEVERE METABOLIC ACIDOSIS Hypocomplementemia Thrombocytopenia Hypokalemia LEFT HYDRONEPHROSIS Right kidney atrophy HTN LEFT RENAL MASS/CYST ANEMIA OF CHRONIC DISEASE NON COMPLIANCE Disposition: DC-07 LEFT AGAINST MED ADVICE Time spent for discharge: 45 mins Core Measure Documentation - Palliative Care Palliative Care/ Comfort Measures: Not Applicable - Core Measures Any of the following diagnoses?: none - VTE Discharge Requirements Deep Vein Thrombosis/Pulmonary Embolism Present on Admission: No Exam - Physical Exam Narrative exam: General appearance: Present: no acute distress, well-nourished - EENT Eyes: Present: PERRL, EOM intact ENT: hearing intact - Neck Neck: Present: supple, normal ROM - Respiratory Respiratory effort: normal Respiratory: bilateral: CTA - Cardiovascular Rhythm: regular Heart Sounds: Present: S1 & S2. Absent: systolic murmur - Extremities Extremities: pulses intact Extremity abnormal: edema (+2 bilateral pitting edema) Peripheral Pulses: within normal limits - Abdominal General gastrointestinal: soft, non-tender, non-distended, normal bowel sounds - Integumentary Integumentary: Present: clear, warm - Psychiatric Psychiatric: appropriate mood/affect, memory intact, other (poor insight) - Neurologic Neurologic: CNII-XII intact, moves all extremities - Allied Health Allied health notes reviewed: nursing - Constitutional Vitals: Temp Pulse Resp BP Pulse Ox 98.4 F 82 19 112/59 98 01/19/18 11:36 01/19/18 11:36 01/19/18 11:36 01/19/18 11:36 01/19/18 11:36 Plan Activity: advance as tolerated, fall precautions Diet: renal Follow up with: MOUNA ALBRIGHT MD [Primary Care Provider] - 7 Days RUBY WEISS MD [Staff Physician] - 7 Days
== END 2018-01-19 12:35 | disposition left against medical advice (07) | DRG 682 ==
LOC: ED 11:18 → 3A 18:50
PROVIDERS: ADMIT Internal Medicine; ATTEND Internal Medicine
PROC: 0TB13ZX Excision of Left Kidney, Percutaneous Approach, Diagnostic (ICD-10-PCS; principal; 2018-01-18)
PROC: BT221ZZ Computerized Tomography (CT Scan) of Left Kidney using Low Osmolar Contrast (ICD-10-PCS; 2018-01-18)
DX: N17.9 Acute kidney failure, unspecified (principal); K65.9 Peritonitis, unspecified; I12.0 Hypertensive chronic kidney disease with stage 5 chronic kidney disease or end stage renal disease; E87.2 Acidosis; J90 Pleural effusion, not elsewhere classified; N18.6 End stage renal disease; N13.30 Unspecified hydronephrosis; D69.6 Thrombocytopenia, unspecified; F17.200 Nicotine dependence, unspecified, uncomplicated; Z53.21 Procedure and treatment not carried out due to patient leaving prior to being seen by health care provider; F17.210 Nicotine dependence, cigarettes, uncomplicated; N28.1 Cyst of kidney, acquired; M32.9 Systemic lupus erythematosus, unspecified; K59.00 Constipation, unspecified; D63.8 Anemia in other chronic diseases classified elsewhere; Z68.37 Body mass index [BMI] 37.0-37.9, adult; Z79.1 Long term (current) use of non-steroidal anti-inflammatories (NSAID); Z82.49 Family history of ischemic heart disease and other diseases of the circulatory system; Z91.14 Patient's other noncompliance with medication regimen; Z71.6 Tobacco abuse counseling
CPT/HCPCS: 36415; 71046; 74176; 76770; 77012; 80048; 80053; 80074; 81001; 82570; 82728; 83520; 83550; 83615; 83690; 83880; 84100; 84156; 84165; 84300; 84550; 85025; 85027; 85610; 85652; 85730; 86021; 86038; 86060; 86160; 86162; 86225; 86618; 87806; 93306; 99406; J0610; J2250; J2270; J2405; J3010; J7030; J7070

== ENCOUNTER 2020-08-18 08:36 | Observation (INO) | payer MEDICARE ==
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
--- NOTE | 2020-08-18 10:08 | Consultation ---
History of Present Illness - Reason for Consult Consult date: 08/18/20 Malfunctioning AV graft - History of Present Illness Patient with a history of end-stage renal disease who is currently dialyzing through a left upper arm brachial axillary AV graft placed in August 2019. The patient recently underwent evaluation of his graft at an access center and a stent was placed at the cannulation sites just distal to the arterial anastomosis. Patient went to dialysis today and they were unable to access his graft. The patient stated that normally he requires longer needles however, the dialysis center did not have the longer needles necessary to dialyze him. Past History Past Medical History: dialysis, ESRD Past Surgical History: Other (Left upper arm AV graft) Medications and Allergies Allergies Allergy/AdvReac Type Severity Reaction Status Date / Time No Known Allergies Allergy Unverified 08/25/19 12:32 Home Medications Medication Instructions Recorded Confirmed Last Taken Type Potassium 8 meq PO DAILY 01/13/18 08/18/20 05/20/18 History 1 tab amLODIPine 10 mg PO DAILY 01/13/18 08/18/20 08/31/19 21:00 History Apixaban [Eliquis] 2.5 mg PO QDAY 05/21/18 08/18/20 08/30/19 08:00 History Atorvastatin [Lipitor] 40 mg PO QDAY 05/21/18 08/18/20 08/31/19 21:00 History Calcium Acetate 667 mg PO TID 05/21/18 08/18/20 08/31/19 21:00 History Furosemide [Lasix TAB] 40 mg PO QDAY 05/21/18 08/18/20 08/31/19 21:00 History Hydroxychloroquine [Plaquenil] 200 mg PO QDAY 05/21/18 08/18/20 08/31/19 20:00 History Terazosin 5 mg PO QDAY 05/21/18 08/18/20 08/31/19 08:00 History carvediloL [Coreg] 3.125 mg PO BID 05/21/18 08/18/20 08/30/19 08:00 History oxyCODONE /ACETAMINOPHEN [Percocet 1 tab PO Q6HR PRN #24 tablet 09/01/19 08/18/20 Unknown Rx 5/325 mg] Review of Systems All systems: negative Exam - Constitutional Vitals: Temp Pulse Resp BP Pulse Ox 98.2 F 74 12 148/84 100 08/18/20 09:04 08/18/20 09:46 08/18/20 09:46 08/18/20 09:04 08/18/20 09:04 General appearance: Present: no acute distress - EENT Eyes: Present: EOM intact ENT: hearing intact - Neck Neck: Present: supple, normal ROM - Respiratory Respiratory effort: normal - Cardiovascular Rhythm: regular - Extremities Extremities: No edema - Abdominal General gastrointestinal: Present: deferred Male genitourinary: Present: deferred - Rectal Rectal Exam: deferred - Psychiatric Psychiatric: appropriate mood/affect, cooperative Assessment and Plan Patient with a left upper arm AV graft. Ultrasound was performed during the course of the patient's physical examination in the ER. The graft is widely patent. There is a small hematoma overlying the middle portion of the graft is likely secondary to repeated attempts at cannulation at his dialysis center. No flow-limiting stenosis is identified. A palpable thrill was present throughout the entire graft. The patient will have labs drawn to determine the necessity for admission and immediate dialysis. If the patient does not require immediate dialysis, and additional attempts at cannulation at his dialysis center with longer needles are unsuccessful, the patient may need to return for an outpatient evaluation of his AV graft with possible placement of a PermCath and elevation to allow easier access. If the patient's labs dictate the need for more immediate dialysis, the patient can be admitted with dialysis performed here.
[2020-08-18 11:02] LABS: Hematocrit 32.8 % (35.5-45.6); Hemoglobin 11.2 gm/dl (11.8-15.2); Mean Corpuscular HGB Conc 34 % (32-34); Mean Corpuscular Volume 98 fl (84-94); Platelet Count 251 K/mm3 (140-440); Red Blood Count 3.34 M/mm3 (3.65-5.03); Red Cell Distribution Width 17.5 % (13.2-15.2)
[2020-08-18 11:11] LABS: INR 1.28 (0.87-1.13)
[2020-08-18 11:12] LABS: Partial Thromboplastin Time 40.5 Sec. (24.2-36.6)
[2020-08-18 11:22] LABS: Calcium 9.6 mg/dL (8.4-10.2)
--- NOTE | 2020-08-18 12:19 | Consultation ---
History of Present Illness - Reason for Consult Consult date: 08/18/20 end stage renal disease, hyperkalemia - History of Present Illness The patient is a 40 YO male known to our service with history significant for Obesity, Hypertension, Anemia, Lupus nephritis, Secondary hyperparathyroidism a nd ESRD on hemodialysis (MWF) who presented to [facility] ED 08/18 after he missed the last 2 sessions of hemodialysis. Patient last received hemodialysis August 13. The staff at the outpatient hemodialysis unit were not able to access his L arm AVG. He has no complaints otherwise. He denies any pain, swelling, weakness or confusion. Labs significant for K 7.4, Creat 20 and BUN 82. Nephrology was consulted for emergent hemodialysis. Past History Past Medical History: anemia, dialysis, ESRD, hypertension, other (Lupus) Past Surgical History: Other (Left upper arm AV graft) Medications and Allergies Allergies Allergy/AdvReac Type Severity Reaction Status Date / Time No Known Allergies Allergy Unverified 08/25/19 12:32 Home Medications Medication Instructions Recorded Confirmed Last Taken Type Potassium 8 meq PO DAILY 01/13/18 08/18/20 05/20/18 History 1 tab amLODIPine 10 mg PO DAILY 01/13/18 08/18/20 08/31/19 21:00 History Apixaban [Eliquis] 2.5 mg PO QDAY 05/21/18 08/18/20 08/30/19 08:00 History Atorvastatin [Lipitor] 40 mg PO QDAY 05/21/18 08/18/20 08/31/19 21:00 History Calcium Acetate 667 mg PO TID 05/21/18 08/18/20 08/31/19 21:00 History Furosemide [Lasix TAB] 40 mg PO QDAY 05/21/18 08/18/20 08/31/19 21:00 History Hydroxychloroquine [Plaquenil] 200 mg PO QDAY 05/21/18 08/18/20 08/31/19 20:00 History Terazosin 5 mg PO QDAY 05/21/18 08/18/20 08/31/19 08:00 History carvediloL [Coreg] 3.125 mg PO BID 05/21/18 08/18/20 08/30/19 08:00 History oxyCODONE /ACETAMINOPHEN [Percocet 1 tab PO Q6HR PRN #24 tablet 09/01/19 08/18/20 Unknown Rx 5/325 mg] Active Meds: Active Medications Dextrose (Dextrose 50% In Water (25gm) 50 Ml Syringe) 50 ml IV ONCE ONE; Protocol Stop: 08/18/20 11:55 Calcium Gluconate 1,000 mg/ (Sodium Chloride) 110 mls @ 660 mls/hr IV ONCE ONE Stop: 08/18/20 12:03 Insulin Human Regular (Insulin Regular, Human 100 Units/1 Ml) 8 units IV ONCE ONE Stop: 08/18/20 11:55 Sodium Bicarbonate (Sodium Bicarb 8.4% 50 Meq/50 Ml Syringe) 50 meq IV ONCE ONE Stop: 08/18/20 11:55 Sodium Polystyrene Sulfonate (Sodium Polystyrene 15 Gm/60 Ml Oral Liqd) 60 gm PO ONCE ONE Stop: 08/18/20 11:55 Review of Systems Constitutional: no weight loss, no weight gain, no fever, no chills, no anorexia, no weakness, no poor appetite Cardiovascular: high blood pressure, no chest pain, no orthopnea, no edema, no syncope, no lightheadedness, no shortness of breath, no leg edema Respiratory: no cough, no hemoptysis, no shortness of breath, no dyspnea on exertion Gastrointestinal: no abdominal pain, no nausea, no vomiting, no diarrhea, no melena Genitourinary Male: no dysuria, no hematuria Rectal: no bleeding Neurological: no seizures, no syncope, no convulsions, no aphasia, no change in speech, no change in mentation, no confusion Exam - Vital Signs Vital signs: Vital Signs Temp Pulse Resp BP Pulse Ox 98.2 F 75 20 148/84 100 08/18/20 09:04 08/18/20 09:04 08/18/20 09:04 08/18/20 09:04 08/18/20 09:04 Results - Lab Results 08/18/20 10:27 08/18/20 10:27 Most recent lab results Calcium 9.6 mg/dL (8.4-10.2) 08/18/20 10:27 Magnesium 2.50 mg/dL (1.7-2.3) H 08/18/20 10:27 Assessment and Plan 1. Acute hyperkalemia: 2/2 missed hemodialysis. S/p hyperkalemia meds in the emergency room. Emergent hemodialysis with low K bath ordered. Monitor. 2. ESRD on hemodialysis: His outpatient schedule is MW. last HD 08/13. Meds dosage based on GFR. 3. Hypertension: Continue antihypertensives and adjust medications as needed. 4. Hypercoagulable state: Eliquis. 5. Anemia: Epogen as needed. 6. Lupus. Examination: General appearance: well-developed, well-nourished, no distress EENT: ATNC, KATERYNA, mucous membranes moist Neck: supple, trachea midline Respiratory: Clear to Auscultation, no rales or ronchi Heart: regular, S1S2 Abdomen: normoactive bowel sounds, no tenderness, no distended, obese Integumentary: no rash, warm and dry Neurologic: no focal deficit, no asterixis, alert and oriented x3 Ext: no edema Psychiatric: mood/affect appropriate, cooperative Hemodialysis access: L arm AVG
[2020-08-18] MEDS ORDERED: SODIUM CHLORIDE 0.9% 100 ML IV PRN (12:20)
[2020-08-18] MEDS ORDERED: HEPARIN 10,000 UNITS/10 ML VIAL IV PRN (12:20)
[2020-08-18] MEDS ORDERED: INSULIN LISPRO 100 UNIT/ML SUB-Q ONE (12:32)
[2020-08-18] MEDS ORDERED: SODIUM BICARB 8.4% 50 MEQ/50 ML SYRINGE IV ONE (13:00)
[2020-08-18] MEDS ORDERED: SODIUM POLYSTYRENE 15 GM/60 ML ORAL LIQD PO ONE (13:00)
[2020-08-18] MEDS ORDERED: CALCIUM GLUCONATE 1,000 MG in SODIUM CHLORIDE 0.9% 100 ML IV ONE (13:00)
[2020-08-18] MEDS ORDERED: INSULIN REGULAR, HUMAN 100 UNITS/1 ML IV ONE (13:00)
[2020-08-18] MEDS ORDERED: DEXTROSE 50% IN WATER (25GM) 50 ML SYRINGE IV ONE (13:00)
[2020-08-18 17:28] VITALS: BP 167/78
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
== END 2020-08-18 18:07 | disposition left against medical advice (07) ==
LOC: ED 08:36 → 3A 12:09
PROVIDERS: ADMIT Internal Medicine; ATTEND Internal Medicine
DX: I12.0 Hypertensive chronic kidney disease with stage 5 chronic kidney disease or end stage renal disease (principal); N18.6 End stage renal disease; E87.5 Hyperkalemia; R79.89 Other specified abnormal findings of blood chemistry; N13.30 Unspecified hydronephrosis; D63.1 Anemia in chronic kidney disease; D68.59 Other primary thrombophilia; M32.9 Systemic lupus erythematosus, unspecified; K21.9 Gastro-esophageal reflux disease without esophagitis; Z99.2 Dependence on renal dialysis; Z86.718 Personal history of other venous thrombosis and embolism; Z98.890 Other specified postprocedural states
CPT/HCPCS: 36415; 80048; 82550; 83735; 85027; 85610; 85730; 96374; 96375; 99291; G0257; G0378; J0610; J1815